=== PATIENT | female | born 1930 | race Caucasian/White ===

== ENCOUNTER 2016-08-15 22:27 | Observation (INO) | payer OTHER ==
[~2016-08-15] VITALS: Ht 152.4 cm; Wt 49.0 kg
[~2016-08-15 22:27] MED LIST: ACET1TAB84 PO
[2016-08-15] MEDS ORDERED: ONDANSETRON INJ 2 MG/ML 2 ML VIAL IV STA (22:43)
[2016-08-15] MEDS ORDERED: SODIUM CHLORIDE 0.9% 1000ML 1,000 ML IV STA (22:43)
[2016-08-15] MEDS ORDERED: SODIUM CHLORIDE 0.9% 500ML 500 ML IV STA (22:43)
[2016-08-15] MEDS ORDERED: ACET-1256 PO (22:52)
[2016-08-15 22:53] LABS: BASO % 0.3 %; BASO ABS # 0.02 K/uL (0-0.2); COMPLETE YES; EOS % 2.3 %; HEMATOCRIT 41.1 % (37-47); IG% 0.8 %; LYMPH % 42.9 %; LYMPH ABS # 3.29 K/uL (1.2-3.4); MEAN CELL VOLUME 90.9 fL (80-100); MEAN CORPUSCULAR HEMOGLOBIN 29.9 pg (25-34); MEAN CORPUSCULAR HGB CONC 32.8 g/dl (32-36); MEAN PLATELET VOLUME 9.2 fL (7.4-10.4); MONO % 6.5 %; NEUT % 47.2 %; PLATELET COUNT 249 K/uL (130-400); RED BLOOD COUNT 4.52 M/uL (4.2-5.4); WHITE BLOOD COUNT 7.67 K/uL (4.8-10.8)
--- NOTE | 2016-08-15 22:56 | DIAGNOSTIC IMAGING REPORT ---
CHEST ONE VIEW PORTABLE CLINICAL HISTORY: Chest pain. Fall. COMPARISON STUDY: Chest radiograph December 10, 2015. FINDINGS: There is no pneumothorax or pleural effusion. Subpleural interstitial thickening remains unchanged. Cardiomegaly is unchanged. There is no lobar consolidation. Severe degenerative changes of both shoulders with elevation of each humeral head is unchanged. This suggests chronic rotator cuff tears. IMPRESSION: 1. No acute findings. 2. No change in appearance of the chest with interstitial thickening suggestive of interstitial lung disease. Electronically signed by: Jonny Mckenna M.D. 08/15/2016 10:55 PM Dictated Date/Time: 08/15/2016 10:52 PM
[2016-08-15] MEDS ORDERED: OPTIRAY 320 IV PRN (23:00)
[2016-08-15 23:42] LABS: ALKALINE PHOSPHATASE 82 U/L (45-117); ALT/SGPT 17 U/L (12-78); BLOOD UREA NITROGEN 20 mg/dl (7-18); BUN/CREATININE RATIO 23.1 (10-20); CALCIUM 8.8 mg/dl (8.5-10.1); CARBON DIOXIDE 27 mmol/L (21-32); CHLORIDE 102 mmol/L (98-107); CREATININE 0.87 mg/dl (0.60-1.20); GLUCOSE 136 mg/dl (70-99); SODIUM 139 mmol/L (136-145)
[2016-08-15] MEDS ORDERED: XYLOCAINE 1%/SOD BICARB 20 ML VIAL INFIL ONE (23:45)
--- NOTE | 2016-08-15 23:55 | EMERGENCY ROOM VISIT NOTE ---
ED Visit Note First contact with patient: 22:21 Patient with fall. Patient sustained a laceration to her head, case was evaluated with physician assistant golf course superintendent Mary Dahl. I agree with her workup. I have evaluated the patient independently at 2350 Problem List Medical Problems: (1) Arthritis Status: Chronic (2) Arthroplasty of knee Status: Chronic (3) Benign essential hypertension Status: Chronic (4) Hemorrhoids Status: Chronic Current/Historical Medications Scheduled PRN Acetaminophen (Tylenol), 1,000 MG PO Q4 PRN for Pain Allergies Coded Allergies: No Known Allergies (Unverified , 08/15/16) Vital Signs Date Time Temp Pulse Resp B/P Pulse Ox O2 Delivery O2 Flow Rate FiO2 08/15/16 23:20 64 16 173/71 98 Room Air 08/15/16 22:41 36.1 60 16 173/76 98 Room Air 08/15/16 22:41 96 Room Air 08/15/16 22:38 61 Laboratory Results 08/15/16 22:00 Red Blood Count 4.52, Mean Corpuscular Volume 90.9, Mean Corpuscular Hemoglobin 29.9, Mean Corpuscular Hemoglobin Concent 32.8, Mean Platelet Volume 9.2, Neutrophils (%) (Auto) 47.2, Lymphocytes (%) (Auto) 42.9, Monocytes (%) (Auto) 6.5, Eosinophils (%) (Auto) 2.3, Basophils (%) (Auto) 0.3, Neutrophils # (Auto) 3.62, Lymphocytes # (Auto) 3.29, Monocytes # (Auto) 0.50, Eosinophils # (Auto) 0.18, Basophils # (Auto) 0.02 08/15/16 22:00 Test 08/15/16 22:00 08/15/16 22:32 08/15/16 23:42 White Blood Count 7.67 K/uL (4.8-10.8) Red Blood Count 4.52 M/uL (4.2-5.4) Hemoglobin 13.5 g/dL (12.0-16.0) Hematocrit 41.1 % (37-47) Mean Corpuscular Volume 90.9 fL (80-100) Mean Corpuscular Hemoglobin 29.9 pg (25-34) Mean Corpuscular Hemoglobin Concent 32.8 g/dl (32-36) Platelet Count 249 K/uL (130-400) Mean Platelet Volume 9.2 fL (7.4-10.4) Neutrophils (%) (Auto) 47.2 % Lymphocytes (%) (Auto) 42.9 % Monocytes (%) (Auto) 6.5 % Eosinophils (%) (Auto) 2.3 % Basophils (%) (Auto) 0.3 % Neutrophils # (Auto) 3.62 K/uL (1.4-6.5) Lymphocytes # (Auto) 3.29 K/uL (1.2-3.4) Monocytes # (Auto) 0.50 K/uL (0.11-0.59) Eosinophils # (Auto) 0.18 K/uL (0-0.5) Basophils # (Auto) 0.02 K/uL (0-0.2) RDW Standard Deviation 45.8 fL (36.4-46.3) RDW Coefficient of Variation 13.9 % (11.5-14.5) Immature Granulocyte % (Auto) 0.8 % Immature Granulocyte # (Auto) 0.06 K/uL (0.00-0.02) Anion Gap 10.0 mmol/L (3-11) Estimated GFR () 68.9 Estimated GFR (Non- 59.5 BUN/Creatinine Ratio 23.1 (10-20) Calcium Level 8.8 mg/dl (8.5-10.1) Total Bilirubin 0.3 mg/dl (0.2-1) Alanine Aminotransferase (ALT/SGPT) 17 U/L (12-78) Alkaline Phosphatase 82 U/L (45-117) Troponin I < 0.015 ng/ml (0-0.045) Total Protein 7.3 gm/dl (6.4-8.2) Albumin 3.5 gm/dl (3.4-5.0) Medications Administered Medications (Trade) Dose Ordered Sig/Vlad Route Start Time Stop Time Status Last Admin Dose Admin Ondansetron HCl 4 mg 4 mg NOW STAT IV 08/15/16 22:43 08/15/16 22:45 DC 08/15/16 22:50 4 MG Sodium Chloride 500 ml @ 999 mls/hr Q31M STAT IV 08/15/16 22:43 08/15/16 23:13 DC 08/15/16 22:50 999 MLS/HR Sodium Chloride (Nss 1000ml) 1,000 ml @ 75 mls/hr [id number] STAT IV 08/15/16 22:43 08/16/16 12:02 08/15/16 23:20 75 MLS/HR Lidocaine HCl (Buffered Lidocaine 1% Inj) 20 ml ONE ONCE INFIL 08/15/16 23:45 08/15/16 23:46 DC 08/15/16 23:50 20 ML Departure Information Referrals Lainey Vasquez M.D. (PCP) Patient Instructions [facility]
[2016-08-16 00:23] LABS: POTASSIUM 4.1 mmol/L (3.5-5.1)
[2016-08-16] MEDS ORDERED: LORAZEPAM 2 MG/ML 1 ML VIAL IV STA (00:26)
[2016-08-16 00:28] LABS: AST/SGOT 15 U/L (15-37)
[2016-08-16 00:37] LABS: URINE APPEARANCE CLEAR (CLEAR); URINE BILIRUBIN NEG (NEG); URINE COLOR YELLOW; URINE EPITHELIAL CELL AUTO >30 /lpf (0-5); URINE NITRITE NEG (NEG); URINE SPECIFIC GRAVITY 1.017 (1.000-1.030); UROBILINOGEN NEG (NEG); ZZUR CULT IF INDIC CLEAN CATCH YES
[2016-08-16 00:38] LABS: MANUAL MICROSCOPIC REQUIRED? NO; REVIEW REQ? YES
[2016-08-16] MEDS ORDERED: DIPHTHERIA/TETANUS/PERTUSSIS 0.5 ML SYR/VIAL IM. ONE (01:00)
--- NOTE | 2016-08-16 01:43 | EMERGENCY ROOM VISIT NOTE ---
History First contact with patient: 22:24 Chief Complaint: FALL Stated Complaint: FALL, HEAD LAC History of Present Illness The patient is a 86 year old female who presents to the Emergency Room with complaints of fall with head injury and vomiting. Patient does not recall the events that happened tonight. Patient complains of vomiting, lower abdominal pain, headache and head injury. She is unsure if the tetanus is current. Patient denies chest pain, dyspnea, fever, chills, cough, congestion. She is tolerating by mouth fluids and food. Patient was brought in by EMS. Review of Systems See HPI for pertinent positives & negatives. A total of 10 systems reviewed and were otherwise negative. Past Medical/Surgical History Medical Problems: (1) Arthritis (2) Arthroplasty of knee (3) Benign essential hypertension (4) Hemorrhoids Family History No pertinent family history Social History Smoking Status: Unknown if Ever Smoked Alcohol Use: none Drug Use: none Marital Status: Housing Status: half-way Occupation Status: retired Current/Historical Medications Scheduled PRN Acetaminophen (Tylenol), 1,000 MG PO Q4 PRN for Pain Allergies Coded Allergies: No Known Allergies (Unverified , 08/15/16) Physical Exam Vital Signs Date Time Temp Pulse Resp B/P Pulse Ox O2 Delivery O2 Flow Rate FiO2 08/15/16 23:20 64 16 173/71 98 Room Air 08/15/16 22:41 36.1 60 16 173/76 98 Room Air 08/15/16 22:41 96 Room Air 08/15/16 22:38 61 Physical Exam VITALS: Vitals are noted on the nurse's note and reviewed by myself. Vital signs stable. GENERAL: Pleasant female, in no acute distress, nondiaphoretic, well-developed well-nourished. SKIN: 3 cm right parietal scalp laceration and superficial abrasion to the left parietal region that appears clean The rest of the skin was without rashes, erythema, edema, or bruising. There is no tenting of the skin. Capillary reflex less than 2 seconds. HEAD: Normocephalic Face: Nontender to palpation. EARS: External auditory canals clear, tympanic membranes pearly robles without erythema or effusion bilaterally. EYES: Pupils equal round and reactive to light and accommodation. Conjunctivae without injection, sclerae without icterus. Extraocular movements intact. NOSE: Patent, turbinates without inflammation or discharge. No sinus tenderness. MOUTH: Mucous membranes moist. Tonsils are not enlarged. Pharynx without erythema or exudate. Uvula midline. Airway patent. Tongue does not deviate. NECK: Supple without nuchal rigidity. No lymphadenopathy. No thyromegaly. Cervical spine is nontender. No JVD. HEART: Regular rate and rhythm LUNGS: Clear to auscultation bilaterally without wheezes, rales or rhonchi. No dullness to percussion. No retractions or accessory muscle use. ABDOMEN: Positive bowel sounds x 4. Normal tympanic percussion. Soft, tender to palpation lower abdomen, no CVA tenderness, without masses or organomegaly. Schmitt sign negative. No guarding or rebound tenderness. MUSCULOSKELETAL: No muscle atrophy, erythema, or edema noted. No thoracic or lumbar tenderness on exam. Stable. 5 out of 5 strength throughout. NEURO: Patient was alert and oriented to person place and time. Normal sensation to light and sharp touch. No focal neurological deficits. Medical Decision & Procedures Laboratory Results 08/15/16 22:00 Red Blood Count 4.52, Mean Corpuscular Volume 90.9, Mean Corpuscular Hemoglobin 29.9, Mean Corpuscular Hemoglobin Concent 32.8, Mean Platelet Volume 9.2, Neutrophils (%) (Auto) 47.2, Lymphocytes (%) (Auto) 42.9, Monocytes (%) (Auto) 6.5, Eosinophils (%) (Auto) 2.3, Basophils (%) (Auto) 0.3, Neutrophils # (Auto) 3.62, Lymphocytes # (Auto) 3.29, Monocytes # (Auto) 0.50, Eosinophils # (Auto) 0.18, Basophils # (Auto) 0.02 08/15/16 22:00 08/15/16 23:52 Test 08/15/16 22:00 08/15/16 23:52 08/16/16 00:27 White Blood Count 7.67 K/uL (4.8-10.8) Red Blood Count 4.52 M/uL (4.2-5.4) Hemoglobin 13.5 g/dL (12.0-16.0) Hematocrit 41.1 % (37-47) Mean Corpuscular Volume 90.9 fL (80-100) Mean Corpuscular Hemoglobin 29.9 pg (25-34) Mean Corpuscular Hemoglobin Concent 32.8 g/dl (32-36) Platelet Count 249 K/uL (130-400) Mean Platelet Volume 9.2 fL (7.4-10.4) Neutrophils (%) (Auto) 47.2 % Lymphocytes (%) (Auto) 42.9 % Monocytes (%) (Auto) 6.5 % Eosinophils (%) (Auto) 2.3 % Basophils (%) (Auto) 0.3 % Neutrophils # (Auto) 3.62 K/uL (1.4-6.5) Lymphocytes # (Auto) 3.29 K/uL (1.2-3.4) Monocytes # (Auto) 0.50 K/uL (0.11-0.59) Eosinophils # (Auto) 0.18 K/uL (0-0.5) Basophils # (Auto) 0.02 K/uL (0-0.2) RDW Standard Deviation 45.8 fL (36.4-46.3) RDW Coefficient of Variation 13.9 % (11.5-14.5) Immature Granulocyte % (Auto) 0.8 % Immature Granulocyte # (Auto) 0.06 K/uL (0.00-0.02) Anion Gap 10.0 mmol/L (3-11) Estimated GFR () 68.9 Estimated GFR (Non- 59.5 BUN/Creatinine Ratio 23.1 (10-20) Calcium Level 8.8 mg/dl (8.5-10.1) Total Bilirubin 0.3 mg/dl (0.2-1) Alanine Aminotransferase (ALT/SGPT) 17 U/L (12-78) Alkaline Phosphatase 82 U/L (45-117) Troponin I < 0.015 ng/ml (0-0.045) Total Protein 7.3 gm/dl (6.4-8.2) Albumin 3.5 gm/dl (3.4-5.0) Direct Bilirubin < 0.1 mg/dl (0-0.2) Aspartate Amino Transf (AST/SGOT) 15 U/L (15-37) Urine Color YELLOW Urine Appearance CLEAR (CLEAR) Urine pH 7.0 (4.5-7.5) Urine Specific [place] 1.017 (1.000-1.030) Urine Protein NEG (NEG) Urine Glucose (UA) NEG (NEG) Urine Ketones NEG (NEG) Urine Occult Blood 3+ (NEG) Urine Nitrite NEG (NEG) Urine Bilirubin NEG (NEG) Urine Urobilinogen NEG (NEG) Urine Leukocyte Esterase LARGE (NEG) Urine WBC (Auto) 10-30 /hpf (0-5) Urine RBC (Auto) >30 /hpf (0-4) Urine Hyaline Casts (Auto) 1-5 /lpf (0-5) Urine Epithelial Cells (Auto) >30 /lpf (0-5) Urine Bacteria (Auto) NEG (NEG) Urine Renal Epithelial Cells 0-5 /lpf (0-5) Medications Administered Medications (Trade) Dose Ordered Sig/Vlad Route Start Time Stop Time Status Last Admin Dose Admin Ondansetron HCl 4 mg 4 mg NOW STAT IV 08/15/16 22:43 08/15/16 22:45 DC 08/15/16 22:50 4 MG Sodium Chloride 500 ml @ 999 mls/hr Q31M STAT IV 08/15/16 22:43 08/15/16 23:13 DC 08/15/16 22:50 999 MLS/HR Sodium Chloride (Nss 1000ml) 1,000 ml @ 75 mls/hr [id number] STAT IV 08/15/16 22:43 08/16/16 12:02 08/15/16 23:20 75 MLS/HR Lidocaine HCl (Buffered Lidocaine 1% Inj) 20 ml ONE ONCE INFIL 08/15/16 23:45 08/15/16 23:46 DC 08/15/16 23:50 20 ML Lorazepam (Ativan Inj) 0.5 mg NOW STAT IV 08/16/16 00:26 08/16/16 00:27 DC 08/16/16 00:31 0.5 MG Procedure Location: Scalp Total length: 3cm Complexity: Simple Verbal consent was obtained after the risks and benefits were explained, including but not limited to bleeding, scarring, infection, pain, and bone/ nerve damage. At this time, the risks of the procedure are less than the risks of NOT performing the procedure. A time out was taken and the correct patient and site identified. The scalp was prepped with betadine. pt declined lidocaine. Copious irrigation was performed using saline. The skin was re- prepped with betadine, the hair cleared from the wound, and a sterile field set. The wound was explored for foreign bodies and none found. Debridement was not performed. The wound edges were approximated using 3 surgical edilberto in the standard fashion. Hemostasis and excellent approximation was achieved. Antibacterial ointment and a sterile dressing applied. Detailed wound care instructions and signs and symptoms of infection reviewed with the pt. No complications and the patient tolerated the procedure well. ED Course Prior records/ancillary studies reviewed and summarized above. Nursing notes reviewed. Additional history obtained from family. The patient's history was concerning for N/V, abd pain, fall, head injury. Differential diagnosis: Etiologies such as metabolic, infection, hypo/hyperglycemia, electrolyte abnormalities, cardiac sources, intracerebral event, toxicologic, neurologic, as well as others were entertained. Physical examination: As above. ER treatment provided: IV Lock Zofran On reassessment the patient felt better. Diagnostics interpretation by me: ECG: Normal sinus, normal intervals, no acute ST-T wave changes. Impression normal sinus rhythm interpreted by myself The labs revealed no worrisome leukocytosis or electrolyte abnormality Imaging studies: CT ABDOMEN & PELVIS: Colonic diverticula without CT evidence of acute diverticulitis. Moderate stool in the distal colon and rectum. Correlate for fecal retention/ constipation. Mild right renal pelviectasis versus extrarenal pelvis. No evidence of ureteral calculus. Chronic-appearing posttraumatic and degenerative changes of the right hip with small amount of air extending into the soft tissues superior to the acetabulum (Series 2, Image 55) . Air may be related to degenerative phenomenon or infection. Recommend clinical correlation and comparison with prior imaging if available. Normal appendix. Peripheral interstitial changes at the lung bases suggestive of chronic lung disease. Radiologist: Nicole Geronimo MD CT HEAD: No acute intracranial hemorrhage, skull fracture, mass effect or midline shift. Mild right posterolateral scalp soft tissue swelling and focus of soft tissue are suggestive of laceration. Subtle hyperdense peripheral mass in the right temporal lobe, measuring approximately 1.8 x 2.3 cm (Series 4, Image 11). Recommend MRI with and without contrast to further assess. Air-fluid level in the left maxillary sinus, possibly due to sinusitis although facial trauma is not excluded. If there is concern for facial bone fracture, dedicated CT of the facial bones is recommended. Mild senescent changes of the brain. Radiologist: Nicole Geronimo MD CT C SPINE: No acute fracture or traumatic subluxation of the cervical spine. Multilevel degenerative changes of the cervical spine. Radiologist: Nicole Geronimo MD CHEST ONE VIEW PORTABLE CLINICAL HISTORY: Chest pain. Fall. COMPARISON STUDY: Chest radiograph December 10, 2015. FINDINGS: There is no pneumothorax or pleural effusion. Subpleural interstitial thickening remains unchanged. Cardiomegaly is unchanged. There is no lobar consolidation. Severe degenerative changes of both shoulders with elevation of each humeral head is unchanged. This suggests chronic rotator cuff tears. IMPRESSION: 1. No acute findings. 2. No change in appearance of the chest with interstitial thickening suggestive of interstitial lung disease. Consultation: A consultation was placed with the hospitalist, Dr Juárez. The case was discussed and diagnostics were reviewed. The patient was evaluated in the ER for further treatment. Exam and history seem consistent with the brain mass with intractable vomiting head injury, fall and scalp laceration. Patient has no right hip tenderness on exam. She can move the leg without difficulties. This could be chronic in nature from the CT reading. Patient will be evaluated by medicine for possible admission. She is given a few rounds of Zofran. No other acute injuries were noted.By the evaluation outlined above emergent etiologies such as electrolyte abnormalities, cardiac sources, intracerebral event, toxologic, abnormalities blood glucose, metabolic, as well as others were deemed relatively unlikely. The pt informed about the findings as listed above. All questions were answered and pleased with the treatment. Case reviewed with my attending Medical Decision As above Impression Primary Impression: Brain mass Additional Impressions: Fall Scalp laceration Vomiting Head injury Departure Information Dispostion Being Evaluated By Hospitalist Condition FAIR Referrals Lainey Vasquez M.D. (PCP) Patient Instructions [facility] Problem Qualifiers
[2016-08-16 01:44] LABS: MAGNESIUM 1.9 mg/dl (1.8-2.4)
[2016-08-16] MEDS ORDERED: DIPHTHERIA/TETANUS TOX ADSORBED ULTRAFINED 0.5 ML SYR/VIAL IM. ONE (02:00)
[2016-08-16 02:25] VITALS: BP 175/93; PULSE 80; TEMP 36.3; O2SAT 97; Ht 152.4 cm; Wt 49.0 kg
[2016-08-16] MEDS ORDERED: NITROGLYCERIN 0.4 MG SL PER TAB CHARGE SL PRN (02:30)
[2016-08-16] MEDS ORDERED: DOCUSATE SODIUM/SENNA 50/8.6MG TAB PO ONE (02:30)
[2016-08-16] MEDS ORDERED: HALOPERIDOL 1 MG TAB PO PRN (02:30)
[2016-08-16] MEDS ORDERED: HALOPERIDOL LACTATE 5 MG/ML 1 ML VIAL IM PRN (02:30)
[2016-08-16] MEDS ORDERED: PROMETHAZINE HCL INJ 12.5 MG in SODIUM CHLORIDE 0.9% 50ML 50 ML IV PRN (02:30)
[2016-08-16] MEDS ORDERED: ONDANSETRON INJ 2 MG/ML 2 ML VIAL IV PRN (02:30)
[2016-08-16] MEDS ORDERED: POLYETHYLENE (MIRALAX) 17 GM PACK PO ONE (02:30)
[2016-08-16] MEDS ORDERED: POLYETHYLENE (MIRALAX) 17 GM PACK PO PRN (02:30)
[2016-08-16] MEDS ORDERED: HYDROmorphone INJ 0.5 MG/0.5 ML SYR IV PRN (02:30)
[2016-08-16] MEDS ORDERED: SODIUM CHLORIDE 0.9% 1000ML 1,000 ML IV ONE (02:30)
[2016-08-16 02:36] VITALS: BP 175/93; PULSE 80; TEMP 36.3; O2SAT 97
[2016-08-16] MEDS ORDERED: IV FLUIDS COMPLETED PRN (03:15)
[2016-08-16] MEDS ORDERED: INFLUENZA VIRUS QUAD VACCINE 0.5 ML SYR IM. ONE (03:45)
[2016-08-16] MEDS ORDERED: INFLUENZA ADMINISTRATION CHARGE ONE (03:45)
[2016-08-16] MEDS ORDERED: LISINOPRIL 2.5 MG TAB PO ONE (04:15)
--- NOTE | 2016-08-16 06:34 | DIAGNOSTIC IMAGING REPORT ---
CT OF THE HEAD WITHOUT CONTRAST CLINICAL HISTORY: Fall with head injury. COMPARISON STUDY: No previous studies for comparison. CT DOSE: 1184.12 mGy.cm TECHNIQUE: Helical axial images of the head were obtained without IV contrast. Automated exposure control was utilized for the study. FINDINGS: Note is made of a 2.5 x 1.9 cm subtle hyperdense mass within the right temporal lobe shown on image 11 of 28. Ventricular system is normal. The basilar cisterns are patent. There are no extra-axial fluid collections. Mild white matter hypodensity suggests small vessel disease. No definite acute intracranial hemorrhage is present. There is an air-fluid level within left maxillary sinus. No fracture is identified within the visualized adjacent facial bones which are incompletely imaged on this exam. There is a right posterior scalp laceration and contusion. There is no calvarial fracture. IMPRESSION: 1. No acute intracranial hemorrhage. 2. 2.5 x 1.8 cm subtle hyperdense right temporal lobe mass. This may be intra or extra-axial and could reflect a meningioma however a follow-up nonemergent MRI of the brain with and without contrast is recommended. 3. Right posterior scalp contusion and laceration. No calvarial fracture. 4. Air-fluid level within left maxillary sinus which likely reflects acute sinusitis. Electronically signed by: Jonny Mckenna M.D. 08/16/2016 6:33 AM Dictated Date/Time: 08/16/2016 6:27 AM
--- NOTE | 2016-08-16 06:39 | DIAGNOSTIC IMAGING REPORT ---
CERVICAL SPINE CT CT DOSE: HISTORY: Trauma fall, head injury TECHNIQUE: Multiaxial CT images of the cervical spine were performed and reformatted in the sagittal and coronal plane without the use of contrast. COMPARISON: None. FINDINGS: No fractures. No subluxation. Prevertebral soft tissues and the C1-C2 interval are intact. No pneumothorax. Degenerative change throughout IMPRESSION: No fractures within the cervical spine. Degenerative change throughout. Electronically signed by: Aurelio Dove M.D. 08/16/2016 6:38 AM Dictated Date/Time: 08/16/2016 6:37 AM
--- NOTE | 2016-08-16 07:25 | DIAGNOSTIC IMAGING REPORT ---
ABDOMEN AND PELVIS CT WITH IV CONTRAST CT DOSE: 306.32 mGy.cm HISTORY: Pain. Nausea. lower abd pain TECHNIQUE: Multiaxial CT images of the abdomen and pelvis were performed following the use of intravenous contrast. COMPARISON STUDY: None. FINDINGS: Nonspecific interstitial change at both lung bases. Liver spleen and pancreas are unremarkable. Several small parapelvic cysts versus prominent extrarenal pelves. No evidence for hydronephrosis. 6 mm cyst anterior aspect interpolar region left kidney. Bowel pattern is nonobstructive. Moderate increase in fecal load within the sigmoid. Compression deformity T10 considered old by CT criteria. Severe degenerative change right hip with evidence for appears to be long-standing avascular necrosis versus old posttraumatic change. Severe deformity right acetabulum. Small air/fluid pocket superior to the acetabulum which may be present on a degenerative and/or post injection basis. Infection is considered a secondary but nevertheless possible etiology. IMPRESSION: 1. Severe degenerative change right hip with a small air-containing fluid pocket superior to the acetabulum of uncertain etiology. 2. Nonobstructive bowel pattern. 3. 50% compression deformity T10 considered old 4. Increased fecal load within the sigmoid. 5. Bibasilar fibrotic change Electronically signed by: Aurelio Dove M.D. 08/16/2016 7:23 AM Dictated Date/Time: 08/16/2016 7:13 AM
--- NOTE | 2016-08-16 07:26 | HISTORY & PHYSICAL EXAMINATION ---
DATE OF ADMISSION: 08/16/2016 PRIMARY CARE DOCTOR: Dr. Vasquez. History obtained from patient, records, patient's family. Patient not a reliable historian 2 to dementia and hearing impairment. CHIEF COMPLAINT: "Here for surgery" as per patient fall as per family. HISTORY OF PRESENT ILLNESS: Medical history significant for hypertension, irritable bowel syndrome, constipation predominant as per records, dementia. Recent confinement in the hospital last 2010 for left knee surgery. As per patient's daughter, px turned around yesterday leading to dizziness and a fall. PX subsequently hit her head. Emesis sx as per EMS account. No witnessed LOC. Patient does not recall falling or hitting her head. Px denies chest pain, shortness of breath. Brought by EMS to the hospital, scalp wound sutured. MEDICAL HISTORY: As above. SURGERIES: Hysterectomy, knee surgery, cataract surgery. HOME MEDICATIONS: Imodium, Tylenol. ALLERGIES: No known drug allergies. FAMILY HISTORY: Could not be obtained. PERSONAL AND SOCIAL HISTORY: Nonsmoker. No chronic intake of alcoholic beverages. 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 Family worried over px declining functionality over the last few months. Patient refusing senior care placement as per records. REVIEW OF SYSTEMS: Could not be obtained. PHYSICAL EXAMINATION: VITAL SIGNS: Blood pressure was noted to be 170/76, pulse rate 60, RR 16, T 37 O2 98 room air. GENERAL: Noted to be demented, no respiratory distress. SKIN: Normal color. HEENT: [place] on scalp lacerated wound, R parietal, pink palp conjunctivae, dry mucosa. NECK: No JVD. Supple. CHEST: Decreased effort. HEART: Regular rate and rhythm. ABDOMEN: Some distention, nontender. EXTREMITIES: No edema, no tenderness. NEUROLOGIC: Dementia. LABS: Hemoglobin was noted to be 13.5, white cells 10, platelets 200. Sodium 137, potassium 4.1, BUN 20, creatinine 1, glucose was noted to be 136. trop 0 CT of the head initial read showed no acute intracranial hemorrhage, mild right posterolateral scalp soft tissue swelling, laceration, subtle hyperdense peripheral mass right temp lobe. Recommend MRI CT of the abdomen and pelvis. Moderate stool, chronic appearing changes R hip ASSESSMENT: 1. Mild cerebral concussion secondary to traumatic fall vomiting sx post head trauma no LOC as per daughter account 2. dementia, worsening disability as per family 3. Hypertensive urgency medication noncompliance px requested to be off her home BB since [address] of the head RE temporal mass. 5. constipation on CT PLAN: Observation PCU, neuro checks Neurology consult RE cerebral concussion, MRI of the brain, abnormal CT of the head. Initiate low dose DANI inhibitor bowel regimen PT OT eval Social service RE discharge planning. DVT prophylaxis, SCDs. RE recent head trauma/wound DNR as per son/POA, . Lexa Ayala. He requests updates from providers at [phone]. [facility]
[2016-08-16 07:52] VITALS: BP 117/68; PULSE 62; TEMP 36.7; O2SAT 97
[2016-08-16 10:36] LABS: BUN/CREATININE RATIO 16.1 (10-20); CALCIUM 8.7 mg/dl (8.5-10.1); CREATININE 0.95 mg/dl (0.60-1.20); POTASSIUM 4.2 mmol/L (3.5-5.1)
[2016-08-16] MEDS: ACETAMINOPHEN 325 MG TAB PO PRN (13:11)
--- NOTE | 2016-08-16 13:28 | Neurology Consultation ---
Neurology Consultation Date of Consultation: Aug 16, 2016. Attending Physician: Esvin Gurrola MD Primary Care Physician: Lainey Vasquez M.D. Reason for Consultation: concussion History of Present Illness Source: patient, family Alissa is an 86 year old female who was brought to the ED after a fall at home. She has a PMH HTN and arthritis. 2 of her sons, a daughter and a daughter in law are all bedside. They states this has been a slow progression of memory issues and falls. She had to sell her house and move into an apartment and live with her daughter. She is unable now to pay her bills or keep up on the daily tasks around the house. Her daughter is epileptic and because of the stress she has started to have "mini seizures". Her family has wanted her to be evaluated because she is not eating or drinking well and is becoming more difficulty to handle but she has refused treatment. Patient states she falls all the time and she just wants to go home. She states she remembers falling and was not lightheaded or dizzy but she does say sometime she does have dizzy spells. denies CP, SOB, abdmominal pain, weakness, N, V,D, fever chills night sweats bowel or bladder issues Past Medical/Surgical History Medical Problems: (1) Brain mass Status: Acute (2) Diarrhea Status: Acute (3) Fall Status: Acute (4) GI bleeding Status: Acute (5) Head injury Status: Acute (6) Rectal bleeding Status: Acute (7) Scalp laceration Status: Acute (8) Vomiting Status: Acute Social History Drug Use: none Marital Status: Housing Status: group home Occupation Status: retired Allergies Coded Allergies: No Known Allergies (Unverified , 08/15/16) Current Inpatient Medications Current Inpatient Medications Medications (Trade) Dose Ordered Sig/Vlad Route Start Time Stop Time Status Last Admin Dose Admin Ioversol 125 ml 125 ml UD PRN IV 08/15/16 23:00 08/19/16 22:59 Sodium Chloride (Nss 1000ml) 1,000 ml @ 60 mls/hr [id number] ONCE IV 08/16/16 02:30 08/16/16 19:09 08/16/16 03:53 60 MLS/HR Acetaminophen (Tylenol Tab) 650 mg Q4H PRN PO 08/16/16 02:30 09/15/16 02:29 Nitroglycerin (Nitrostat Tab) 0.4 mg UD PRN SL 08/16/16 02:30 09/15/16 02:29 Hydromorphone HCl (Dilaudid Inj) 0.5 mg Q3H PRN IV 08/16/16 02:30 08/30/16 02:29 Haloperidol (Haldol Tab) 2 mg Q4H PRN PO 08/16/16 02:30 09/15/16 02:29 Haloperidol Lactate (Haldol Inj) 2 mg Q2H PRN IM 08/16/16 02:30 09/15/16 02:29 Ondansetron HCl 4 mg 4 mg Q6H PRN IV 08/16/16 02:30 09/15/16 02:29 Promethazine HCl/ Sodium Chloride (Phenergan Inj/ Nss 50ml) 50.5 ml @ 204 mls/hr Q6H PRN IV 08/16/16 02:30 09/15/16 02:29 Senna/Docusate Sodium (Senokot S Tab) 1 tab DAILY PO 08/17/16 08:00 09/16/16 08:59 Polyethylene (Miralax Powder Packet) 17 gm DAILY PRN PO 08/16/16 02:30 09/15/16 02:29 Miscellaneous (Iv Fluids Completed) 1 ea PRN PRN N/A 08/16/16 03:15 08/16/17 03:14 Lisinopril (Zestril Tab) 2.5 mg QAM PO 08/17/16 08:00 09/16/16 08:59 Physical Exam Vital Signs (Past 24 Hrs): Date Time Temp Pulse Resp B/P Pulse Ox O2 Delivery O2 Flow Rate FiO2 08/16/16 08:09 Room Air 08/16/16 07:52 36.7 62 16 117/68 97 08/16/16 02:36 36.3 80 18 175/93 97 Room Air 08/16/16 02:25 36.3 80 18 175/93 97 Room Air 08/16/16 01:34 84 16 163/94 98 Room Air 08/15/16 23:20 64 16 173/71 98 Room Air 08/15/16 22:41 36.1 60 16 173/76 98 Room Air 08/15/16 22:41 96 Room Air 08/15/16 22:38 61 Physical Exam: Constitutional: appearance thin pale unkept Ears, Nose, Mouth and Throat: mucous membranes moist, no injection and skin normal, eyes normal Cardiovascular: normal S-1 and S-2 and regular rate and rhythm Respiratory: clear to auscultation (CTA) and no rales, rhonchi or wheeze Musculoskeletal: no peripheral edema and good distal pulses, 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 Oriented to person Speech fluent with no evidence of aphasia Cranial Nerves smile eye brow raise symmetric, tongue midline Reflexes: Deep tendon reflexes were symmetrical and graded 2/5. Plantar responses were flexor. no clonus Sensory: decreased sensation bilaterally to cool touch to perera, vibration decreased in RLE toes, GT proprioception in tact Coordination: Romberg drift to right but corrects self, finger to nose without bi pass or tremor Gait/Stance: Posture sitting but stands and moves around room a lot looking for her shoes, orthopedic limp with gait Motor: Negative for pronator drift of out stretched arms with eyes closed. Strength: biceps triceps deltoids hand rebar fabricator bilaterally 5/5, hip flex 5/5 Laboratory Results Past 24 Hours: 08/15/16 22:00 Red Blood Count 4.52, Mean Corpuscular Volume 90.9, Mean Corpuscular Hemoglobin 29.9, Mean Corpuscular Hemoglobin Concent 32.8, Mean Platelet Volume 9.2, Neutrophils (%) (Auto) 47.2, Lymphocytes (%) (Auto) 42.9, Monocytes (%) (Auto) 6.5, Eosinophils (%) (Auto) 2.3, Basophils (%) (Auto) 0.3, Neutrophils # (Auto) 3.62, Lymphocytes # (Auto) 3.29, Monocytes # (Auto) 0.50, Eosinophils # (Auto) 0.18, Basophils # (Auto) 0.02 08/16/16 09:42 Test 08/15/16 22:00 08/15/16 23:52 08/16/16 00:27 08/16/16 09:42 White Blood Count 7.67 K/uL (4.8-10.8) Red Blood Count 4.52 M/uL (4.2-5.4) Hemoglobin 13.5 g/dL (12.0-16.0) Hematocrit 41.1 % (37-47) Mean Corpuscular Volume 90.9 fL (80-100) Mean Corpuscular Hemoglobin 29.9 pg (25-34) Mean Corpuscular Hemoglobin Concent 32.8 g/dl (32-36) Platelet Count 249 K/uL (130-400) Mean Platelet Volume 9.2 fL (7.4-10.4) Neutrophils (%) (Auto) 47.2 % Lymphocytes (%) (Auto) 42.9 % Monocytes (%) (Auto) 6.5 % Eosinophils (%) (Auto) 2.3 % Basophils (%) (Auto) 0.3 % Neutrophils # (Auto) 3.62 K/uL (1.4-6.5) Lymphocytes # (Auto) 3.29 K/uL (1.2-3.4) Monocytes # (Auto) 0.50 K/uL (0.11-0.59) Eosinophils # (Auto) 0.18 K/uL (0-0.5) Basophils # (Auto) 0.02 K/uL (0-0.2) RDW Standard Deviation 45.8 fL (36.4-46.3) RDW Coefficient of Variation 13.9 % (11.5-14.5) Immature Granulocyte % (Auto) 0.8 % Immature Granulocyte # (Auto) 0.06 K/uL (0.00-0.02) Total Bilirubin 0.3 mg/dl (0.2-1) Alanine Aminotransferase (ALT/SGPT) 17 U/L (12-78) Alkaline Phosphatase 82 U/L (45-117) Troponin I < 0.015 ng/ml (0-0.045) Total Protein 7.3 gm/dl (6.4-8.2) Albumin 3.5 gm/dl (3.4-5.0) Magnesium Level 1.9 mg/dl (1.8-2.4) Direct Bilirubin < 0.1 mg/dl (0-0.2) Aspartate Amino Transf (AST/SGOT) 15 U/L (15-37) Thyroid Stimulating Hormone (TSH) 2.780 uIu/ml (0.300-4.500) Urine Color YELLOW Urine Appearance CLEAR (CLEAR) Urine pH 7.0 (4.5-7.5) Urine Specific [place] 1.017 (1.000-1.030) Urine Protein NEG (NEG) Urine Glucose (UA) NEG (NEG) Urine Ketones NEG (NEG) Urine Occult Blood 3+ (NEG) Urine Nitrite NEG (NEG) Urine Bilirubin NEG (NEG) Urine Urobilinogen NEG (NEG) Urine Leukocyte Esterase LARGE (NEG) Urine WBC (Auto) 10-30 /hpf (0-5) Urine RBC (Auto) >30 /hpf (0-4) Urine Hyaline Casts (Auto) 1-5 /lpf (0-5) Urine Epithelial Cells (Auto) >30 /lpf (0-5) Urine Bacteria (Auto) NEG (NEG) Urine Renal Epithelial Cells 0-5 /lpf (0-5) Anion Gap 11.0 mmol/L (3-11) Est Creatinine Clear Calc Drug Dose 29.4 ml/min Estimated GFR () 62.0 Estimated GFR (Non- 53.5 BUN/Creatinine Ratio 16.1 (10-20) Calcium Level 8.7 mg/dl (8.5-10.1) Imaging CT head- No acute intracranial hemorrhage. 2.5 x 1.8 cm subtle hyperdense right temporal lobe mass. This may be intra or extra-axial and could reflect a meningioma however a follow-up nonemergent MRI of the brain with and without contrast is recommended. Right posterior scalp contusion and laceration. No calvarial fracture. Air-fluid level within left maxillary sinus which likely reflects acute sinusitis. Impression 86 year old female with a progressive decline in MS- CT head with lesion Plan 1. 1:1 due to fall risk 2. family is requesting placement for the progressive memory issues and unable to care for her at home 3. care management making arrangement 4. MRI currently pending will need done with contrast 5. labs B12, folate, RPR order, TSH pending 6. discussed dementia medications aricept due to weight loss and no appetite is not option, may consider Namenda 7. further recommendations to follow I have seen and discussed above patient with Dr Anaid Graves, neurology PT is known to me for many years as I have cared for her daughter and her now- . I have witnessed a gradual cognitive decline. Pt living in the [facility] with her daughter who has a sz disorder. Pt fell and was brought in. Evidence of UTI on ua. CT head shows a r temp mass MRI brain complete, and with contrast not tolerated suggest of poss R temp meningioma. No hx of sz that I aware. Pt is awake, alert, moderately confused, tells me she has problems with her ears and appears distressed. Oriented to hospital, does not recognize me. Names, follows 1 step commands, NCAT Perrl, unable to vis optic nerve. No gross facial asym, asymmetric weakness or drift, symm reflexes, toes downgoing Imp Suspect AD with superimposed mild delirium. The R temp mass is likely asx. If pt cannot tolerate MRI, could do CT head with and without to clarify whether tumor in extra- or intra-axial. Labs for treatable etiologies of dementia. Doubt pt a candidate for Aricept as she appears to have lost weight. Could start Namenda but unlikely to make any demonstrable change in pt. Pt will need NH placement. GILBERTO Graves MD
--- NOTE | 2016-08-16 14:45 | Progress Note ---
Medicine Progress Note Date & Time of Visit: Aug 16, 2016 at 14:40. Subjective patient seen sitting up in bed, comfortable oriented x 2, pleasant, cooperative was having frontal headache, resolved reports yellow nasal discharge, no cough/dyspnea denies hip pain, gait problems no chest pain, dyspnea, abdominal pain, nausea/vomiting, no other symptoms Objective Last 8 Hrs Date Time Temp Pulse Resp B/P Pulse Ox O2 Delivery O2 Flow Rate FiO2 08/16/16 08:09 Room Air 08/16/16 07:52 36.7 62 16 117/68 97 Physical Exam: General- oriented x 3, not in distress, speaks in sentences with no effort Head- atraumatic Eyes- EOMI, anicteric ENT- oropharynx clear mild left maxillary tenderness Neck- supple, no JVD, no adenopathy Lungs- clear to auscultation bilaterally Heart- normal rate, regular rhythm; no murmurs Abdomen- normal bowel sounds, soft, nontender Extremities- no pretibial edema, no calf tenderness; peripheral pulses intact Neuro- alert, oriented x 2;no gross focal deficits Skin- warm & dry Laboratory Results: Last 24 Hours Test 08/15/16 22:00 08/15/16 23:52 08/16/16 00:27 08/16/16 09:42 White Blood Count 7.67 K/uL Red Blood Count 4.52 M/uL Hemoglobin 13.5 g/dL Hematocrit 41.1 % Mean Corpuscular Volume 90.9 fL Mean Corpuscular Hemoglobin 29.9 pg Mean Corpuscular Hemoglobin Concent 32.8 g/dl Platelet Count 249 K/uL Mean Platelet Volume 9.2 fL Neutrophils (%) (Auto) 47.2 % Lymphocytes (%) (Auto) 42.9 % Monocytes (%) (Auto) 6.5 % Eosinophils (%) (Auto) 2.3 % Basophils (%) (Auto) 0.3 % Neutrophils # (Auto) 3.62 K/uL Lymphocytes # (Auto) 3.29 K/uL Monocytes # (Auto) 0.50 K/uL Eosinophils # (Auto) 0.18 K/uL Basophils # (Auto) 0.02 K/uL RDW Standard Deviation 45.8 fL RDW Coefficient of Variation 13.9 % Immature Granulocyte % (Auto) 0.8 % Immature Granulocyte # (Auto) 0.06 K/uL Sodium Level 139 mmol/L 139 mmol/L Potassium Level mmol/L 4.1 mmol/L 4.2 mmol/L Chloride Level 102 mmol/L 102 mmol/L Carbon Dioxide Level 27 mmol/L 26 mmol/L Anion Gap 10.0 mmol/L 11.0 mmol/L Blood Urea Nitrogen 20 mg/dl 15 mg/dl Creatinine 0.87 mg/dl 0.95 mg/dl Estimated GFR () 68.9 62.0 Estimated GFR (Non- 59.5 53.5 BUN/Creatinine Ratio 23.1 16.1 Random Glucose 136 mg/dl 136 mg/dl Calcium Level 8.8 mg/dl 8.7 mg/dl Total Bilirubin 0.3 mg/dl Direct Bilirubin mg/dl < 0.1 mg/dl Aspartate Amino Transf (AST/SGOT) U/L 15 U/L Alanine Aminotransferase (ALT/SGPT) 17 U/L Alkaline Phosphatase 82 U/L Troponin I < 0.015 ng/ml Total Protein 7.3 gm/dl Albumin 3.5 gm/dl Magnesium Level 1.9 mg/dl Thyroid Stimulating Hormone (TSH) 2.780 uIu/ml Urine Color YELLOW Urine Appearance CLEAR Urine pH 7.0 Urine Specific [place] 1.017 Urine Protein NEG Urine Glucose (UA) NEG Urine Ketones NEG Urine Occult Blood 3+ Urine Nitrite NEG Urine Bilirubin NEG Urine Urobilinogen NEG Urine Leukocyte Esterase LARGE Urine WBC (Auto) 10-30 /hpf Urine RBC (Auto) >30 /hpf Urine Hyaline Casts (Auto) 1-5 /lpf Urine Epithelial Cells (Auto) >30 /lpf Urine Bacteria (Auto) NEG Urine Renal Epithelial Cells 0-5 /lpf Est Creatinine Clear Calc Drug Dose 29.4 ml/min Test 08/16/16 13:25 Date/Time Source Procedure Growth Status 08/16/16 00:27 Urine , Clean Catch Urine Culture Pending Received Assessment & Plan 86 year old female with history of hypertension presenting with fall. S/P FALL - patient denies any prodrome - likely mechanical - PT/OT eval check orthostatic VS POSSIBLE UNDERLYING DEMENTIA - Neurology on board - family requesting transitioning to SNF RIGHT TEMPORAL MASS - MRI brain pending - Neurology consulted ACUTE SINUSITIS - start Augmentin BID x 7 days POSSIBLE AVASCULAR NECROSIS, RIGHT HIP ACETABULAR DEFORMITY, RIGHT - will consult Ortho HYPERTENSIVE URGENCY - improving - change Lisinopril to Amlodipine due to decrease Creatinine Clearance MICROSCOPIC HEMATURIA - repeat UA dvt prophylaxis - SCDs Dispo pending anticipate transition to SNF Current Inpatient Medications: Current Inpatient Medications Medications (Trade) Dose Ordered Sig/Vlad Route Start Time Stop Time Status Last Admin Dose Admin Ioversol 125 ml 125 ml UD PRN IV 08/15/16 23:00 08/19/16 22:59 Sodium Chloride (Nss 1000ml) 1,000 ml @ 60 mls/hr [id number] ONCE IV 08/16/16 02:30 08/16/16 19:09 08/16/16 03:53 60 MLS/HR Acetaminophen (Tylenol Tab) 650 mg Q4H PRN PO 08/16/16 02:30 09/15/16 02:29 08/16/16 13:11 325 MG Nitroglycerin (Nitrostat Tab) 0.4 mg UD PRN SL 08/16/16 02:30 09/15/16 02:29 Hydromorphone HCl (Dilaudid Inj) 0.5 mg Q3H PRN IV 08/16/16 02:30 08/30/16 02:29 Haloperidol (Haldol Tab) 2 mg Q4H PRN PO 08/16/16 02:30 09/15/16 02:29 Haloperidol Lactate (Haldol Inj) 2 mg Q2H PRN IM 08/16/16 02:30 09/15/16 02:29 Ondansetron HCl 4 mg 4 mg Q6H PRN IV 08/16/16 02:30 09/15/16 02:29 Promethazine HCl/ Sodium Chloride (Phenergan Inj/ Nss 50ml) 50.5 ml @ 204 mls/hr Q6H PRN IV 08/16/16 02:30 09/15/16 02:29 Senna/Docusate Sodium (Senokot S Tab) 1 tab DAILY PO 08/17/16 08:00 09/16/16 08:59 Polyethylene (Miralax Powder Packet) 17 gm DAILY PRN PO 08/16/16 02:30 09/15/16 02:29 Miscellaneous (Iv Fluids Completed) 1 ea PRN PRN N/A 08/16/16 03:15 08/16/17 03:14 Amlodipine Besylate (Norvasc Tab) 2.5 mg QAM PO 08/17/16 08:00 09/16/16 07:59
[2016-08-16 15:08] VITALS: BP 129/84; PULSE 80; TEMP 36.8; O2SAT 96
--- NOTE | 2016-08-16 15:29 | DIAGNOSTIC IMAGING REPORT ---
MRI OF THE BRAIN WITHOUT CONTRAST CLINICAL HISTORY: Mass seen on CT. COMPARISON STUDY: Head CT August 15, 2016. TECHNIQUE: Utilizing a 1.5 María magnet and dedicated coil, multiplanar, multiecho imaging of the brain was attempted. The study could not be completed and only two pulsing sequences were performed. Therefore, this exam is incomplete. No charge will be generated for this incomplete exam FINDINGS: This exam is incomplete however does confirm the presence of a right temporal mass which measures approximately 2.4 x 1.6 cm. This corresponds to the lesion shown on head CT. While not definitive, this mass is probably extra-axial and a meningioma is favored although this is incompletely characterized on this unenhanced study. No additional abnormalities are identified on the sagittal T1 sequence. IMPRESSION: Incomplete examination. However, this study confirms the presence of a 2.4 cm right temporal lobe mass. While not definitive, this mass is likely extra-axial and a meningioma is favored. However, if possible, the patient should return for a follow-up pre and postcontrast MRI. Electronically signed by: Jonny Mckenna M.D. 08/16/2016 3:28 PM Dictated Date/Time: 08/16/2016 3:23 PM
[2016-08-16 16:00] VITALS: O2SAT 96
[2016-08-16] MEDS: AMOXICILLIN/CLAVULANATE TAB 500 MG TAB PO SCH (17:59)
[2016-08-16] MEDS ORDERED: LORAZEPAM 0.5 MG TAB PO PRN (19:00)
[2016-08-16 20:00] VITALS: O2SAT 95
[2016-08-17 01:39] VITALS: BP 185/96; PULSE 78; TEMP 36.8; O2SAT 97
[2016-08-17 07:16] VITALS: BP 193/72; PULSE 64; TEMP 36.8; O2SAT 94
[2016-08-17] MEDS ORDERED: LISINOPRIL 2.5 MG TAB PO SCH (08:00)
[2016-08-17 08:30] VITALS: O2SAT 94
[2016-08-17] MEDS: AMOXICILLIN/CLAVULANATE TAB 500 MG TAB PO SCH ×2 (09:19→17:07)
[2016-08-17] MEDS: DOCUSATE SODIUM/SENNA 50/8.6MG TAB PO SCH (09:46)
[2016-08-17] MEDS: AMLODIPINE BESYLATE 5 MG TAB PO SCH (09:47)
--- NOTE | 2016-08-17 12:14 | Neurology Progress Notes ---
Neurology Progress Note Date of Service Aug 17, 2016. Efrem Maxwell is an 86 year old female who was brought to the ED after a fall at home. She has a PMH HTN and arthritis. 2 of her sons, a daughter and a daughter in law are all bedside. They states this has been a slow progression of memory issues and falls. She had to sell her house and move into an apartment and live with her daughter. She is unable now to pay her bills or keep up on the daily tasks around the house. Her daughter is epileptic and because of the stress she has started to have "mini seizures". Her family has wanted her to be evaluated because she is not eating or drinking well and is becoming more difficulty to handle but she has refused treatment. Patient states she falls all the time and she just wants to go home. She states she remembers falling and was not lightheaded or dizzy but she does say sometime she does have dizzy spells. This am she is sleeping. She awakes with moving covers. She had a restless night and was somewhat aggressive with nursing staff. She is asking where her daughter Denisa is and thinks she is at home. denies CP, SOB, abdominal pain, weakness. Objective Date Time Temp Pulse Resp B/P Pulse Ox O2 Delivery O2 Flow Rate FiO2 08/17/16 08:30 94 Room Air 08/17/16 07:16 36.8 64 18 193/72 94 Room Air 08/17/16 01:39 36.8 78 18 185/96 97 Room Air 08/16/16 20:00 95 Room Air 08/16/16 16:00 96 Room Air 08/16/16 15:08 36.8 80 16 129/84 96 Room Air Last 24 Hours Test 08/16/16 15:13 Vitamin B12 Level 626 pg/mL Folate 22.82 ng/mL Rapid Plasma Reagin NONREACTIVE Imaging: MRI brain- Incomplete examination. However, this study confirms the presence of a 2.4 cm right temporal lobe mass. While not definitive, this mass is likely extra-axial and a meningioma is favored. However, if possible, the patient should return for a follow-up pre and postcontrast MRI. Exam: Physical Exam: Constitutional: appearance nourished, healthy and normal Ears, Nose, Mouth and Throat: mucous membranes moist, no injection and skin normal, eyes normal Cardiovascular: normal S-1 and S-2 and regular rate and rhythm Respiratory: clear to auscultation (CTA) and no rales, rhonchi or wheeze Musculoskeletal: no peripheral edema and good distal pulses Skin: no stigmata of neurocutaneous disease noted and normal and intact Eyes: extraocular muscles intact (EOMI) and pupils equal, round and reactive to light (PERRL) NEUROLOGIC EXAMINATION: Mental status: Alert and interactive Oriented to person Speech fluent with no evidence of aphasia Cranial Nerves smile and eye brow raise symmetric. Gait/Stance: Posture lying in bed Current Inpatient Medications Medications (Trade) Dose Ordered Sig/Vlad Route Start Time Stop Time Status Last Admin Dose Admin Ioversol (Optiray 320) 125 ml UD PRN IV 08/15/16 23:00 08/19/16 22:59 Acetaminophen (Tylenol Tab) 650 mg Q4H PRN PO 08/16/16 02:30 09/15/16 02:29 08/16/16 13:11 325 MG Nitroglycerin (Nitrostat Tab) 0.4 mg UD PRN SL 08/16/16 02:30 09/15/16 02:29 Hydromorphone HCl (Dilaudid Inj) 0.5 mg Q3H PRN IV 08/16/16 02:30 08/30/16 02:29 Haloperidol (Haldol Tab) 2 mg Q4H PRN PO 08/16/16 02:30 09/15/16 02:29 Haloperidol Lactate (Haldol Inj) 2 mg Q2H PRN IM 08/16/16 02:30 09/15/16 02:29 Ondansetron HCl 4 mg 4 mg Q6H PRN IV 08/16/16 02:30 09/15/16 02:29 Promethazine HCl/ Sodium Chloride (Phenergan Inj/ Nss 50ml) 50.5 ml @ 204 mls/hr Q6H PRN IV 08/16/16 02:30 09/15/16 02:29 Senna/Docusate Sodium (Senokot S Tab) 1 tab DAILY PO 08/17/16 08:00 09/16/16 08:59 Polyethylene (Miralax Powder Packet) 17 gm DAILY PRN PO 08/16/16 02:30 09/15/16 02:29 Miscellaneous (Iv Fluids Completed) 1 ea PRN PRN N/A 08/16/16 03:15 08/16/17 03:14 Amlodipine Besylate (Norvasc Tab) 2.5 mg QAM PO 08/17/16 08:00 09/16/16 07:59 08/17/16 09:47 2.5 MG Amoxicillin/ Clavulanate Potassium (Augmentin Tab) 500 mg BIDM PO 08/16/16 15:30 08/26/16 15:29 08/17/16 09:19 500 MG Lorazepam (Ativan Tab) 0.5 mg Q6H PRN PO 08/16/16 19:00 09/15/16 18:59 Impression 86 year old female with a progressive decline in MS- CT head with lesion Plan 1. 1:1 due to fall risk 2. family is requesting placement for the progressive memory issues and unable to care for her at home 3. care management making arrangement 4. MRI patient could not tolerate. could try again or obtain a CT with and without contrast- family input would be helpful to determine if needed 5. labs B12, folate, RPR order, TSH all within normal limits 6. discussed dementia medications Aricept due to weight loss and no appetite is not option, may consider Namenda but not likely to be helpful at this point and family states she was refusing medication in the past. 7. getting patient to a safe environment was families main concern. I have seen and discussed above patient with Dr Alan Lares, neurology Above reviewed and patient seen She is clearly demented and the presumptive mass lesion is likely a meningioma but a contrast study will have to be done to define this and am not sure she will cooperate The issue is to me academic as the mass is not likely to be the cause of her cognitive impairment and agree that aricept will likely only cause more weight loss and namenda unlikely to benefit will follow along and await placement plans to be finalized Alan Lares MD
[2016-08-17 15:18] VITALS: BP 134/66; PULSE 75; TEMP 36.4; O2SAT 97
[2016-08-17 16:00] VITALS: O2SAT 95
--- NOTE | 2016-08-17 16:31 | Progress Note ---
Medicine Progress Note Date & Time of Visit: Aug 17, 2016 at 16:23. Subjective patient states she feels fine overall today headache is better no dizziness when standing mental status at baseline per granddaughter tolerating PT no chest pain, dyspnea, palpitations, dizziness,nausea no other symptoms Objective Last 8 Hrs Date Time Temp Pulse Resp B/P Pulse Ox O2 Delivery O2 Flow Rate FiO2 08/17/16 15:18 36.4 75 14 134/66 97 Room Air 08/17/16 08:30 94 Room Air Physical Exam: General- oriented x 3, not in distress, speaks in sentences with no effort Eyes- anicteric Neck- supple, no JVD Lungs- clear to auscultation bilaterally, no ralea Heart- normal rate, regular rhythm; no murmurs Abdomen- normal bowel sounds, soft, nontender Extremities- no pretibial edema, no calf tenderness Neuro- alert, oriented x 2;no gross focal deficits Skin- warm & dry Assessment & Plan 86 year old female with history of hypertension presenting with fall. S/P FALL - patient denies any prodrome - likely mechanical - PT/OT eval in progress orthostatic VS: negative POSSIBLE UNDERLYING DEMENTIA - Neurology on board Namenda and Aricept not recommended at this time - family requesting transitioning to SNF case management work in progress RIGHT TEMPORAL MASS - MRI brain: IMPRESSION: Incomplete examination. However, this study confirms the presence of a 2.4 cm right temporal lobe mass. While not definitive, this mass is likely extra-axial and a meningioma is favored. However, if possible, the patient should return for a follow-up pre and postcontrast MRI. - Neurology consulted monitor no further recommendations at this time ACUTE SINUSITIS - Day 2 Augmentin BID x 7 days - tolerating well POSSIBLE AVASCULAR NECROSIS, RIGHT HIP ACETABULAR DEFORMITY, RIGHT - awaiting Ortho eval HYPERTENSIVE URGENCY - improved - changed Lisinopril to Amlodipine due to decrease Creatinine Clearance MICROSCOPIC HEMATURIA - repeat UA dvt prophylaxis - SCDs ambulation Dispo pending anticipate transition to SNF Current Inpatient Medications: Current Inpatient Medications Medications (Trade) Dose Ordered Sig/Vlad Route Start Time Stop Time Status Last Admin Dose Admin Ioversol (Optiray 320) 125 ml UD PRN IV 08/15/16 23:00 08/19/16 22:59 Acetaminophen (Tylenol Tab) 650 mg Q4H PRN PO 08/16/16 02:30 09/15/16 02:29 08/16/16 13:11 325 MG Nitroglycerin (Nitrostat Tab) 0.4 mg UD PRN SL 08/16/16 02:30 09/15/16 02:29 Hydromorphone HCl (Dilaudid Inj) 0.5 mg Q3H PRN IV 08/16/16 02:30 08/30/16 02:29 Haloperidol (Haldol Tab) 2 mg Q4H PRN PO 08/16/16 02:30 09/15/16 02:29 Haloperidol Lactate (Haldol Inj) 2 mg Q2H PRN IM 08/16/16 02:30 09/15/16 02:29 Ondansetron HCl 4 mg 4 mg Q6H PRN IV 08/16/16 02:30 09/15/16 02:29 Promethazine HCl/ Sodium Chloride (Phenergan Inj/ Nss 50ml) 50.5 ml @ 204 mls/hr Q6H PRN IV 08/16/16 02:30 09/15/16 02:29 Senna/Docusate Sodium (Senokot S Tab) 1 tab DAILY PO 08/17/16 08:00 09/16/16 08:59 Polyethylene (Miralax Powder Packet) 17 gm DAILY PRN PO 08/16/16 02:30 09/15/16 02:29 Miscellaneous (Iv Fluids Completed) 1 ea PRN PRN N/A 08/16/16 03:15 08/16/17 03:14 Amlodipine Besylate (Norvasc Tab) 2.5 mg QAM PO 08/17/16 08:00 09/16/16 07:59 08/17/16 09:47 2.5 MG Amoxicillin/ Clavulanate Potassium (Augmentin Tab) 500 mg BIDM PO 08/16/16 15:30 08/26/16 15:29 08/17/16 09:19 500 MG Lorazepam (Ativan Tab) 0.5 mg Q6H PRN PO 08/16/16 19:00 09/15/16 18:59
--- NOTE | 2016-08-17 17:14 | CONSULTATION REPORT ---
DATE OF CONSULTATION: 08/17/2016 REASON FOR CONSULTATION: Right hip, possible avascular necrosis. HISTORY OF PRESENT ILLNESS: The patient is an 86-year-old female admitted to the hospital yesterday after a fall, scalp laceration and vomiting. Multiple imaging studies were obtained on the pelvis and the abdominal CT scan it was noted she had severe degenerative changes around the right hip and acetabulum area. We were consulted for further orthopedic evaluation. She denies any hip pain presently she said since her admission she has been able to ambulate. She has had some chronic hip arthritis, which she is aware of and does have some generalized joint pain as well. No more pain at this time than she has had previously. Again, she has been able to ambulate while in the hospital according to her granddaughter and staff member. No other orthopedic complaints at this time. 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 FAMILY HISTORY: Noncontributory. SOCIAL HISTORY: Denies alcohol, tobacco or drug use. ALLERGIES: No known drug allergies. MEDICATIONS: Reviewed in her chart and include only acetaminophen on admission. REVIEW OF SYSTEMS: Noncontributory. PHYSICAL EXAMINATION: Today, she was seen and examined by Dr. Krishna rivera as well. She is alert. She is slightly confused. She is in no distress. Her granddaughter is with her at this time. She has some tenderness to palpation around her knee. No knee effusion. She is able to actively extend her knee do a straight leg raise. No pain with flexion, extension of her knee. She has no pain with hip range of motion today, although she does have stiffness of her hip that go to her left leg as well. She has a scar on her left knee from her previous knee replacement. No swelling. Notes no pain at the left knee. She has no pain with motion of the left hip. X-RAYS: No x-rays were obtained. We did review her CT scan of her abdomen and pelvis, which showed advanced DJD of the right hip. IMPRESSION: Right hip advanced degenerative joint disease. PLAN: She was seen and examined by Dr. Krishna rivera. We reviewed her CT scan, we discussed the findings with her and her granddaughter. She does have a terrible arthritis of her hip, no acute changes. She has been able to ambulate. Physical therapy has been ordered. She can continue weightbearing as tolerated. No further intervention for her hip at this time. She had NO interest in any surgical treatment. No restrictions are needed. Thank you for this consult and please call with any further questions [phone]. [facility]
[2016-08-18] VITALS (7 sets, daily range): BP systolic 117–137; BP diastolic 65–78; PULSE 54–83; TEMP 36.7–36.9; O2SAT 91–97
[2016-08-18] MEDS: ACETAMINOPHEN 325 MG TAB PO PRN (08:06)
[2016-08-18] MEDS: AMLODIPINE BESYLATE 5 MG TAB PO SCH (08:07)
[2016-08-18] MEDS: DOCUSATE SODIUM/SENNA 50/8.6MG TAB PO SCH (08:07)
[2016-08-18] MEDS: AMOXICILLIN/CLAVULANATE TAB 500 MG TAB PO SCH ×2 (08:07→16:15)
--- NOTE | 2016-08-18 10:44 | Progress Note ---
Medicine Progress Note Date & Time of Visit: Aug 18, 2016 at 10:39. Subjective patient seen resting in bed comfortable had nausea this AM, resolved now tolerated breakfast denies chest pain, dyspnea, palpitations, dizziness would like to ambulate more denies other symptoms Objective Last 8 Hrs Date Time Temp Pulse Resp B/P Pulse Ox O2 Delivery O2 Flow Rate FiO2 08/18/16 07:26 36.8 54 18 137/65 97 Room Air Physical Exam: General- oriented x 3, not in distress, speaks in sentences with no effort Neck- no JVD Lungs- clear breath sounds bilaterally, no rales Heart- normal rate, regular rhythm; no murmurs Abdomen- normal bowel sounds, soft, nontender Extremities- no pretibial edema, no calf tenderness Neuro- alert, oriented x 2;no gross focal deficits Skin- warm & dry Assessment & Plan 86 year old female with history of hypertension presenting with fall. S/P FALL, likely Mechanical - patient denies any prodrome - likely mechanical - PT/OT eval in progress orthostatic VS: negative POSSIBLE UNDERLYING DEMENTIA - Neurology on board Namenda and Aricept not recommended at this time - family requesting transitioning to SNF case management work in progress- possibly Saturday RIGHT TEMPORAL MASS - MRI brain: IMPRESSION: Incomplete examination. However, this study confirms the presence of a 2.4 cm right temporal lobe mass. While not definitive, this mass is likely extra-axial and a meningioma is favored. However, if possible, the patient should return for a follow-up pre and postcontrast MRI. - Neurology consulted monitor no further recommendations at this time ACUTE SINUSITIS - Day 3 Augmentin BID x 7 days - tolerating well POSSIBLE AVASCULAR NECROSIS, RIGHT HIP ACETABULAR DEFORMITY, RIGHT - evaluated by Dr. Keller no further intervention for now monitor appreciate the recommendations HYPERTENSIVE URGENCY - improved - changed Lisinopril to Amlodipine due to decrease Creatinine Clearance MICROSCOPIC HEMATURIA - repeat UA dvt prophylaxis - SCDs, (+) temporal mass ambulation Dispo pending anticipate transition to SNF Current Inpatient Medications: Current Inpatient Medications Medications (Trade) Dose Ordered Sig/Vlad Route Start Time Stop Time Status Last Admin Dose Admin Ioversol (Optiray 320) 125 ml UD PRN IV 08/15/16 23:00 08/19/16 22:59 Acetaminophen (Tylenol Tab) 650 mg Q4H PRN PO 08/16/16 02:30 09/15/16 02:29 08/18/16 08:06 650 MG Nitroglycerin (Nitrostat Tab) 0.4 mg UD PRN SL 08/16/16 02:30 09/15/16 02:29 Haloperidol (Haldol Tab) 2 mg Q4H PRN PO 08/16/16 02:30 09/15/16 02:29 Haloperidol Lactate (Haldol Inj) 2 mg Q2H PRN IM 08/16/16 02:30 09/15/16 02:29 Ondansetron HCl 4 mg 4 mg Q6H PRN IV 08/16/16 02:30 09/15/16 02:29 Promethazine HCl/ Sodium Chloride (Phenergan Inj/ Nss 50ml) 50.5 ml @ 204 mls/hr Q6H PRN IV 08/16/16 02:30 09/15/16 02:29 Senna/Docusate Sodium (Senokot S Tab) 1 tab DAILY PO 08/17/16 08:00 09/16/16 08:59 08/18/16 08:07 1 TAB Polyethylene (Miralax Powder Packet) 17 gm DAILY PRN PO 08/16/16 02:30 09/15/16 02:29 Miscellaneous (Iv Fluids Completed) 1 ea PRN PRN N/A 08/16/16 03:15 08/16/17 03:14 Amlodipine Besylate (Norvasc Tab) 2.5 mg QAM PO 08/17/16 08:00 09/16/16 07:59 08/18/16 08:07 2.5 MG Amoxicillin/ Clavulanate Potassium (Augmentin Tab) 500 mg BIDM PO 08/16/16 15:30 08/26/16 15:29 08/18/16 08:07 500 MG Lorazepam (Ativan Tab) 0.5 mg Q6H PRN PO 08/16/16 19:00 09/15/16 18:59
[2016-08-18] MEDS ORDERED: TRAMADOL HCL 50 MG TAB PO PRN (10:45)
--- NOTE | 2016-08-18 12:19 | PROGRESS NOTE ---
DATE: 08/18/2016 DATE: 08/18/2016. Alissa looks well today. She is sitting with her family, she wants to go home. She has no idea where she is, thinking she is in [place] in a hospital that used to be a hotel. She is pleasant. There are no focal findings, cranial nerves are intact. She is ambulatory but tends to wander a bit and now she is in an unfamiliar environment so the wandering risk is higher. The imaging studies have been hampered by her inability to hold still or to tolerate the contrast, but it looks as though this is extraaxial lesion most consistent with a meningioma and frankly I am not sure it is of any value to try to sedate her and get an imaging study done to confirm what we already think and then put her at more risk for agitation and confusion. Right now there are apparently some issues about placement. The family really wants her in [facility] as they live close by and can visit, but there is some issue with the 1:1 nursing need which I think is probably something that is only transient and limited to her stay here in a very unfamiliar environment. She might need some extra attention at [facility] for a few days until she gets acclimated and the family will be able to help, so hopefully this can be somehow be allowed for and she can be placed in [facility] once a bed is available there. I will continue to see her, but at this point, neurology does not have anything to offer. I would not place her on anticonvulsants. Aricept is simply going to make her already low weight lower and curb in her appetite. I do not think Namenda has any role at this point in her dementia. Apparently Dr. Vasquez tried some of these medications, but she simply forgot to take them and I see no value in reinstituting them here. RUBY
[2016-08-19 08:00] VITALS: O2SAT 96
[2016-08-19] MEDS: AMLODIPINE BESYLATE 5 MG TAB PO SCH (08:25)
[2016-08-19] MEDS: DOCUSATE SODIUM/SENNA 50/8.6MG TAB PO SCH (08:26)
[2016-08-19] MEDS: AMOXICILLIN/CLAVULANATE TAB 500 MG TAB PO SCH ×2 (08:27→19:03)
[2016-08-19 08:29] VITALS: BP 157/90; PULSE 83; TEMP 37; O2SAT 98
--- NOTE | 2016-08-19 12:47 | PROGRESS NOTE ---
DATE: 08/19/2016 DATE: 08/19/2016. Alissa looks the same today. Her family was not here and she was asleep. She is pleasantly confused. She keeps stating she wants to go home. I mentioned the possibility of her going to [facility] and she seems to recognize the name of the institution and thought she had been there before and did not particularly "care for it". This is about all I get out of her. Otherwise, exam is nonfocal except for cognitive impairment for which she requires 1 on 1 observation for safety while she is here in the hospital. assistant guest services manager is working on placement issues. Neurologically we are really not going to start her on Aricept and I see no role for Namenda. I think the mass lesion is clearly a meningioma and at this point I do not think we need to follow up with any other evaluations other than perhaps another CAT scan in a year or so. We will check on her again tomorrow, but at some point neurology's input is really not going to be necessary. We are going to probably sign off the case in a day or 2 unless there are significant changes in her status. RUBY
[2016-08-19 16:00] VITALS: O2SAT 97
[2016-08-19 16:06] VITALS: BP 136/63; PULSE 61; TEMP 36.7; O2SAT 93
--- NOTE | 2016-08-19 16:25 | Progress Note ---
Medicine Progress Note Date & Time of Visit: Aug 19, 2016 at 16:22. Subjective seen resting in bed, comfortable pleasantly confused states she feels ok overall has occasional headaches noted to have diarrhea today, no abdominal pain/nausea no other symptoms Objective Last 8 Hrs Date Time Temp Pulse Resp B/P Pulse Ox O2 Delivery O2 Flow Rate FiO2 08/19/16 16:06 36.7 61 16 136/63 93 Room Air 08/19/16 16:00 97 Room Air 08/19/16 08:29 37.0 83 20 157/90 98 Room Air Physical Exam: General- oriented x 1, not in distress, speaks in sentences with no effort Lungs- clear breath sounds bilaterally, no rales Heart- normal rate, regular rhythm; no murmurs Abdomen- normal bowel sounds, soft, nontender Extremities- no pretibial edema, no calf tenderness Neuro- alert, oriented x 1;no gross focal deficits Skin- warm & dry Assessment & Plan 86 year old female with history of hypertension presenting with fall. S/P FALL, likely Mechanical - patient denies any prodrome - likely mechanical - PT/OT eval in progress orthostatic VS: negative POSSIBLE UNDERLYING DEMENTIA - Neurology on board Namenda and Aricept not recommended at this time - family requesting transitioning to SNF case management work in progress- possibly Saturday RIGHT TEMPORAL MASS - MRI brain: IMPRESSION: Incomplete examination. However, this study confirms the presence of a 2.4 cm right temporal lobe mass. While not definitive, this mass is likely extra-axial and a meningioma is favored. However, if possible, the patient should return for a follow-up pre and postcontrast MRI. - Neurology consulted monitor no further recommendations at this time ACUTE SINUSITIS - Day 4 Augmentin BID x 7 days - tolerating well DIARRHEA check C diff POSSIBLE AVASCULAR NECROSIS, RIGHT HIP ACETABULAR DEFORMITY, RIGHT - evaluated by Dr. Keller no further intervention for now monitor appreciate the recommendations HYPERTENSIVE URGENCY - improved - changed Lisinopril to Amlodipine due to decrease Creatinine Clearance MICROSCOPIC HEMATURIA - repeat UA dvt prophylaxis - SCDs, (+) temporal mass ambulation Dispo pending anticipate transition to SNF Current Inpatient Medications: Current Inpatient Medications Medications (Trade) Dose Ordered Sig/Vlad Route Start Time Stop Time Status Last Admin Dose Admin Ioversol (Optiray 320) 125 ml UD PRN IV 08/15/16 23:00 08/19/16 22:59 Acetaminophen (Tylenol Tab) 650 mg Q4H PRN PO 08/16/16 02:30 09/15/16 02:29 08/18/16 08:06 650 MG Nitroglycerin (Nitrostat Tab) 0.4 mg UD PRN SL 08/16/16 02:30 09/15/16 02:29 Haloperidol (Haldol Tab) 2 mg Q4H PRN PO 08/16/16 02:30 09/15/16 02:29 Haloperidol Lactate (Haldol Inj) 2 mg Q2H PRN IM 08/16/16 02:30 09/15/16 02:29 Ondansetron HCl 4 mg 4 mg Q6H PRN IV 08/16/16 02:30 09/15/16 02:29 Promethazine HCl/ Sodium Chloride (Phenergan Inj/ Nss 50ml) 50.5 ml @ 204 mls/hr Q6H PRN IV 08/16/16 02:30 09/15/16 02:29 Polyethylene (Miralax Powder Packet) 17 gm DAILY PRN PO 08/16/16 02:30 09/15/16 02:29 Miscellaneous (Iv Fluids Completed) 1 ea PRN PRN N/A 08/16/16 03:15 08/16/17 03:14 Amlodipine Besylate (Norvasc Tab) 2.5 mg QAM PO 08/17/16 08:00 09/16/16 07:59 08/19/16 08:25 2.5 MG Amoxicillin/ Clavulanate Potassium (Augmentin Tab) 500 mg BIDM PO 08/16/16 15:30 08/26/16 15:29 08/19/16 08:27 500 MG Lorazepam (Ativan Tab) 0.5 mg Q6H PRN PO 08/16/16 19:00 09/15/16 18:59 08/18/16 16:15 0.5 MG Tramadol HCl (Ultram Tab) 50 mg Q8H PRN PO 08/18/16 10:45 09/17/16 10:44
[2016-08-19 22:56] VITALS: BP 151/83; PULSE 67; TEMP 36.3; O2SAT 99
[2016-08-20] VITALS: O2SAT 97
[2016-08-20] MEDS: ACETAMINOPHEN 325 MG TAB PO PRN ×3 (03:54→17:32)
[2016-08-20 07:49] VITALS: BP 163/80; PULSE 50; TEMP 36.7; O2SAT 99
[2016-08-20] MEDS: AMOXICILLIN/CLAVULANATE TAB 500 MG TAB PO SCH ×2 (08:03→17:32)
[2016-08-20] MEDS: AMLODIPINE BESYLATE 5 MG TAB PO SCH (08:04)
[2016-08-20] MEDS ORDERED: ONDANSETRON 4 MG TAB PO PRN (12:00)
--- NOTE | 2016-08-20 14:44 | Neurology Progress Notes ---
Neurology Progress Note Date of Service Aug 20, 2016. Efrem Maxwell is an 86 year old female who was brought to the ED after a fall at home. She has a PMH HTN and arthritis. 2 of her sons, a daughter and a daughter in law are all bedside. They states this has been a slow progression of memory issues and falls. She had to sell her house and move into an apartment and live with her daughter. She is unable now to pay her bills or keep up on the daily tasks around the house. Her daughter is epileptic and because of the stress she has started to have "mini seizures". Her family has wanted her to be evaluated because she is not eating or drinking well and is becoming more difficulty to handle but she has refused treatment. Patient states she falls all the time and she just wants to go home. She states she remembers falling and was not lightheaded or dizzy but she does say sometime she does have dizzy spells. Today her son is in the room and states they are working on getting placement but the 1:1 due to confusion is causing her to be delayed. Today she states she is in a hospital but she is unsure where. She does know her son. denies CP, SOB , abdominal pain, + nausea and vomiting earlier today but she took a nap and then ate her lunch. 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 Current Inpatient Medications Medications (Trade) Dose Ordered Sig/Vlad Route Start Time Stop Time Status Last Admin Dose Admin Acetaminophen (Tylenol Tab) 650 mg Q4H PRN PO 08/16/16 02:30 09/15/16 02:29 08/20/16 10:53 650 MG Nitroglycerin (Nitrostat Tab) 0.4 mg UD PRN SL 08/16/16 02:30 09/15/16 02:29 Haloperidol (Haldol Tab) 2 mg Q4H PRN PO 08/16/16 02:30 09/15/16 02:29 Haloperidol Lactate (Haldol Inj) 2 mg Q2H PRN IM 08/16/16 02:30 09/15/16 02:29 Ondansetron HCl 4 mg 4 mg Q6H PRN IV 08/16/16 02:30 09/15/16 02:29 Promethazine HCl/ Sodium Chloride (Phenergan Inj/ Nss 50ml) 50.5 ml @ 204 mls/hr Q6H PRN IV 08/16/16 02:30 09/15/16 02:29 Polyethylene (Miralax Powder Packet) 17 gm DAILY PRN PO 08/16/16 02:30 09/15/16 02:29 Miscellaneous (Iv Fluids Completed) 1 ea PRN PRN N/A 08/16/16 03:15 08/16/17 03:14 Amlodipine Besylate (Norvasc Tab) 2.5 mg QAM PO 08/17/16 08:00 09/16/16 07:59 08/20/16 08:04 2.5 MG Amoxicillin/ Clavulanate Potassium (Augmentin Tab) 500 mg BIDM PO 08/16/16 15:30 08/26/16 15:29 08/20/16 08:03 500 MG Lorazepam (Ativan Tab) 0.5 mg Q6H PRN PO 08/16/16 19:00 09/15/16 18:59 08/18/16 16:15 0.5 MG Tramadol HCl (Ultram Tab) 50 mg Q8H PRN PO 08/18/16 10:45 09/17/16 10:44 08/20/16 08:03 50 MG Ondansetron HCl (Zofran Tab) 4 mg Q6H PRN PO 08/20/16 12:00 09/19/16 11:59 Impression 86 year old female with a progressive decline in MS- CT head with lesion Plan 1. 1:1 due to fall risk 2. family is requesting placement for the progressive memory issues and unable to care for her at home 3. care management making arrangement 4. MRI patient could not tolerate. could try again or obtain a CT with and without contrast- family input would be helpful to determine if needed 5. labs B12, folate, RPR order, TSH all within normal limits 6. discussed dementia medications Aricept due to weight loss and no appetite is not option, may consider Namenda but not likely to be helpful at this point and family states she was refusing medication in the past. 7. getting patient to a safe environment was families main concern. 8. psych consult would be helpful for behavior issues switch to seraquel rather than prn haldol may be more appropriate. 9. will sign off for now will be available for questions or concerns if needed. I have seen and discussed above patient with Dr Alan Lares, neurology Patient seen still pleasantly confused and is going off to a facility near her home this afternoon we can see as needed follow up if desired with Anaid Staton and Anaid Graves and she maay need a ct of the head to check on the presumptove meningioma in a year Alan Lares MD
[2016-08-20 15:16] VITALS: BP 141/81; PULSE 83; TEMP 36.6; O2SAT 96
--- NOTE | 2016-08-20 15:36 | Progress Note ---
Medicine Progress Note Date & Time of Visit: Aug 20, 2016 at 15:28. Subjective patient states she feels ok overall today pleasantly confused has chronic intermittent headaches no focal neuro symptoms, dizziness, nausea no other symptoms states she is ready for discharge today family at bedside and agreeable with discharge Objective Last 8 Hrs Date Time Temp Pulse Resp B/P Pulse Ox O2 Delivery O2 Flow Rate FiO2 08/20/16 15:16 36.6 83 16 141/81 96 Room Air 08/20/16 08:00 Room Air 08/20/16 07:49 36.7 50 22 163/80 99 Room Air Physical Exam: General- oriented x 1, not in distress, speaks in sentences with no effort head- [address] over right parietal scalp, healing well, no bleeding/ swelling/discharge Lungs- clear breath sounds bilaterally, no rales/wheezes Heart- normal rate, regular rhythm Abdomen- normal bowel sounds, soft, nontender Extremities- no pretibial edema, no calf tenderness Neuro- alert, oriented x 1;no gross focal deficits Skin- warm & dry Laboratory Results: Date/Time Source Procedure Growth Status 08/19/16 18:40 Stool C.difficile Toxin B Gene (PCR) - Final No C. difficile toxin B gene detected Complete Assessment & Plan 86 year old female with history of hypertension presenting with fall. S/P FALL, likely Mechanical - patient denies any prodrome - likely mechanical - PT/OT performed inpatient orthostatic VS: negative - continue PT/OT POSSIBLE UNDERLYING DEMENTIA - Neurology Dr. Lares evaluated the patient Namenda and Aricept not recommended at this time - continue outpatient neuro ff up RIGHT TEMPORAL MASS - MRI brain: IMPRESSION: Incomplete examination. However, this study confirms the presence of a 2.4 cm right temporal lobe mass. While not definitive, this mass is likely extra-axial and a meningioma is favored. However, if possible, the patient should return for a follow-up pre and postcontrast MRI. - Neurologist Dr. Lares feels this is meningioma repeat CT head in 1 year no further recommendations at this time RIGHT PARIETAL SCALP LACERATION staple removal in 2 days ACUTE SINUSITIS - Day 5 Augmentin BID x 7 days - tolerating well - continue 2 more days of Augmentin DIARRHEA resolved no C diff POSSIBLE AVASCULAR NECROSIS, RIGHT HIP ACETABULAR DEFORMITY, RIGHT - CT abdomen: 1. Severe degenerative change right hip with a small air-containing fluid pocket superior to the acetabulum of uncertain etiology. 2. Nonobstructive bowel pattern. 3. 50% compression deformity T10 considered old 4. Increased fecal load within the sigmoid. 5. Bibasilar fibrotic change - evaluated by Dr. Keller- Ortho no further intervention for now weight bearing as tolerated HYPERTENSIVE URGENCY - improved - changed Lisinopril to Amlodipine due to decrease Creatinine Clearance - monitor BP MICROSCOPIC HEMATURIA - repeat UA on follow up with PCP Dispo d/c home today ff up with Primary Care Physician in 3-[address] head in 1 year Current Inpatient Medications: Current Inpatient Medications Medications (Trade) Dose Ordered Sig/Vlad Route Start Time Stop Time Status Last Admin Dose Admin Acetaminophen (Tylenol Tab) 650 mg Q4H PRN PO 08/16/16 02:30 09/15/16 02:29 08/20/16 10:53 650 MG Nitroglycerin (Nitrostat Tab) 0.4 mg UD PRN SL 08/16/16 02:30 09/15/16 02:29 Haloperidol (Haldol Tab) 2 mg Q4H PRN PO 08/16/16 02:30 09/15/16 02:29 Haloperidol Lactate (Haldol Inj) 2 mg Q2H PRN IM 08/16/16 02:30 09/15/16 02:29 Ondansetron HCl 4 mg 4 mg Q6H PRN IV 08/16/16 02:30 09/15/16 02:29 Promethazine HCl/ Sodium Chloride (Phenergan Inj/ Nss 50ml) 50.5 ml @ 204 mls/hr Q6H PRN IV 08/16/16 02:30 09/15/16 02:29 Polyethylene (Miralax Powder Packet) 17 gm DAILY PRN PO 08/16/16 02:30 09/15/16 02:29 Miscellaneous (Iv Fluids Completed) 1 ea PRN PRN N/A 08/16/16 03:15 08/16/17 03:14 Amlodipine Besylate (Norvasc Tab) 2.5 mg QAM PO 08/17/16 08:00 09/16/16 07:59 08/20/16 08:04 2.5 MG Amoxicillin/ Clavulanate Potassium (Augmentin Tab) 500 mg BIDM PO 08/16/16 15:30 08/26/16 15:29 08/20/16 08:03 500 MG Lorazepam (Ativan Tab) 0.5 mg Q6H PRN PO 08/16/16 19:00 09/15/16 18:59 08/18/16 16:15 0.5 MG Tramadol HCl (Ultram Tab) 50 mg Q8H PRN PO 08/18/16 10:45 09/17/16 10:44 08/20/16 08:03 50 MG Ondansetron HCl (Zofran Tab) 4 mg Q6H PRN PO 08/20/16 12:00 09/19/16 11:59
[2016-08-20] MEDS ORDERED: AMOX1TAB42 PO (15:38)
[2016-08-20] MEDS ORDERED: NRV5 PO (15:38)
[2016-08-20] MEDS ORDERED: TYL325X PO (15:38)
--- NOTE | 2016-08-20 15:42 | Discharge Instructions ---
Discharge Instructions Date of Service Aug 20, 2016. Admission Reason for Admission: Cerebral Concussion Discharge Discharge Diagnosis / Problem: S/P FALL Discharge Goals Goal(s): Diagnostic testing, Therapeutic intervention Activity Recommendations Activity Level: Assistance Required Therapies: Physical Therapy, Occupational Therapy . Additional Information Patient informed of condition: Yes Advance Directives: No (UNKNOWN) DNR: Yes ( PER SON JAMIN) Level of Care: Skilled Communicable Disease: No Prognosis: Stable Instructions / Follow-Up Instructions / Follow-Up PATIENT ON ONE-TO-ONE OBSERVATION WHILE IN THE HOSPITAL. PLEASE EVALUATE NECESSITY. REMOVE KEVIN ON THE SCALP IN 2 DAYS. FALL PRECAUTIONS PLEASE. MONITOR BLOOD PRESSURE. FOLLOW UP WITH PRIMARY CARE PHYSICIAN IN 1 WEEK. FOLLOW UP WITH NEUROLOGIST IN 3-[address] HEAD IN 1 YEAR TO FOLLOW UP RIGHT TEMPORAL MASS- LIKELY MENINGIOMA. PLEASE REFER TO ACCOMPANYING DISCHARGE SUMMARY. Current Hospital Diet Patient's current hospital diet: Regular Diet, AHA Diet (Heart Healthy) Discharge Diet Recommended Diet: AHA Diet (Heart Healthy) Pending Studies Studies pending at discharge: yes List of pending studies: REPEAT CT HEAD IN 1 YEAR Physician Orders On Transfer Special Precautions: PATIENT ON ONE-TO-ONE OBSERVATION WHILE IN THE HOSPITAL. PLEASE EVALUATE NECESSITY. REMOVE KEVIN ON THE SCALP IN 2 DAYS. FALL PRECAUTIONS PLEASE. MONITOR BLOOD PRESSURE. FOLLOW UP WITH PRIMARY CARE PHYSICIAN IN 1 WEEK. FOLLOW UP WITH NEUROLOGIST IN 3-[address] HEAD IN 1 YEAR TO FOLLOW UP RIGHT TEMPORAL MASS- LIKELY MENINGIOMA. PLEASE REFER TO ACCOMPANYING DISCHARGE SUMMARY. Medical Emergencies . Who to Call and When: Medical Emergencies: If at any time you feel your situation is an emergency, please call 911 immediately. . Non-Emergent Contact Non-Emergency issues call your: Primary Care Provider Call Non-Emergent contact if: you have a fever, your pain is not controlled, wound has increased drainage, wound has increased redness, wound has increased pain, you have any medication questions . Past History Medical & Surgical History: (1) Head injury (2) Vomiting (3) Fall (4) Scalp laceration (5) Brain mass (6) Cerebral concussion (7) Arthritis (8) Arthroplasty of knee (9) Benign essential hypertension (10) Hemorrhoids . "Provider Documentation" section prepared by Esvin Gurrola. Core Measure Problem Core Measures: None
--- NOTE | 2016-08-20 15:47 | Discharge Summary ---
Discharge Summary Date of Service Aug 20, 2016. 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 COMPARISON STUDY: Head CT August 15, 2016. TECHNIQUE: Utilizing a 1.5 María magnet and dedicated coil, multiplanar, multiecho imaging of the brain was attempted. The study could not be completed and only two pulsing sequences were performed. Therefore, this exam is incomplete. No charge will be generated for this incomplete exam FINDINGS: This exam is incomplete however does confirm the presence of a right temporal mass which measures approximately 2.4 x 1.6 cm. This corresponds to the lesion shown on head CT. While not definitive, this mass is probably extra-axial and a meningioma is favored although this is incompletely characterized on this unenhanced study. No additional abnormalities are identified on the sagittal T1 sequence. IMPRESSION: Incomplete examination. However, this study confirms the presence of a 2.4 cm right temporal lobe mass. While not definitive, this mass is likely extra-axial and a meningioma is favored. However, if possible, the patient should return for a follow-up pre and postcontrast MRI. ABDOMEN AND PELVIS CT WITH IV CONTRAST CT DOSE: 306.32 mGy.cm HISTORY: Pain. Nausea. lower abd pain TECHNIQUE: Multiaxial CT images of the abdomen and pelvis were performed following the use of intravenous contrast. COMPARISON STUDY: None. FINDINGS: Nonspecific interstitial change at both lung bases. Liver spleen and pancreas are unremarkable. Several small parapelvic cysts versus prominent extrarenal pelves. No evidence for hydronephrosis. 6 mm cyst anterior aspect interpolar region left kidney. Bowel pattern is nonobstructive. Moderate increase in fecal load within the sigmoid. Compression deformity T10 considered old by CT criteria. Severe degenerative change right hip with evidence for appears to be long-standing avascular necrosis versus old posttraumatic change. Severe deformity right acetabulum. Small air/fluid pocket superior to the acetabulum which may be present on a degenerative and/or post injection basis. Infection is considered a secondary but nevertheless possible etiology. IMPRESSION: 1. Severe degenerative change right hip with a small air-containing fluid pocket superior to the acetabulum of uncertain etiology. 2. Nonobstructive bowel pattern. 3. 50% compression deformity T10 considered old 4. Increased fecal load within the sigmoid. 5. Bibasilar fibrotic change [~ rep ct add3]] CERVICAL SPINE CT CT DOSE: HISTORY: Trauma fall, head injury TECHNIQUE: Multiaxial CT images of the cervical spine were performed and reformatted in the sagittal and coronal plane without the use of contrast. COMPARISON: None. FINDINGS: No fractures. No subluxation. Prevertebral soft tissues and the C1-C2 interval are intact. No pneumothorax. Degenerative change throughout IMPRESSION: No fractures within the cervical spine. Degenerative change throughout. [~ rep ct add3]] CHEST ONE VIEW PORTABLE CLINICAL HISTORY: Chest pain. Fall. COMPARISON STUDY: Chest radiograph December 10, 2015. FINDINGS: There is no pneumothorax or pleural effusion. Subpleural interstitial thickening remains unchanged. Cardiomegaly is unchanged. There is no lobar consolidation. Severe degenerative changes of both shoulders with elevation of each humeral head is unchanged. This suggests chronic rotator cuff tears. IMPRESSION: 1. No acute findings. 2. No change in appearance of the Consultations: NEUROLOGIST DR. LARES Pending Studies/Follow-Up: PATIENT ON ONE-TO-ONE OBSERVATION WHILE IN THE HOSPITAL. PLEASE EVALUATE NECESSITY. REMOVE JACOB ON THE SCALP IN 2 DAYS. FALL PRECAUTIONS PLEASE. MONITOR BLOOD PRESSURE. FOLLOW UP WITH PRIMARY CARE PHYSICIAN IN 1 WEEK. FOLLOW UP WITH NEUROLOGIST IN 3-[address] HEAD IN 1 YEAR TO FOLLOW UP RIGHT TEMPORAL MASS- LIKELY MENINGIOMA. PLEASE REFER TO ACCOMPANYING DISCHARGE SUMMARY. Medication Reconciliation New Medications: Acetaminophen (Tylenol) 325 Mg Tab 650 MG PO Q4H PRN for Pain or Fever for 10 Days, TAB Amlodipine Besylate (Amlodipine Besylate) 5 Mg Tab 2.5 MG PO QAM for 30 Days, #30 TAB 1 Refill Amoxicillin & Pot Clavulanate (Amoxicillin/Clavulanate P) 1 Tab Tab 500 MG PO BIDM for 2 Days, #4 TAB 0 Refills Discontinued Medications: Acetaminophen (Tylenol) 500 Mg Tab 1000 MG PO Q4 PRN for Pain, TAB Admission Information HPI (per Admitting provider): Medical history significant for hypertension, irritable bowel syndrome, constipation predominant as per records, dementia. Recent confinement in the hospital last 2010 for left knee surgery. As per patient's daughter, px turned around yesterday leading to dizziness and a fall. PX subsequently hit her head. Emesis sx as per EMS account. No witnessed LOC. Patient does not recall falling or hitting her head. Px denies chest pain, shortness of breath. Brought by EMS to the hospital, scalp wound sutured. Physical Exam (per Admitting): VITAL SIGNS: Blood pressure was noted to be 170/76, pulse rate 60, RR 16, T 37 O2 98 room air. GENERAL: Noted to be demented, no respiratory distress. SKIN: Normal color. HEENT: Jacob on scalp lacerated wound, R parietal, pink palp conjunctivae, dry mucosa. NECK: No JVD. Supple. CHEST: Decreased effort. HEART: Regular rate and rhythm. ABDOMEN: Some distention, nontender. EXTREMITIES: No edema, no tenderness. NEUROLOGIC: Dementia. Hospital Course 86 year old female with history of hypertension presenting with fall. S/P FALL, likely Mechanical - patient denies any prodrome - likely mechanical - PT/OT performed inpatient orthostatic VS: negative - continue PT/OT POSSIBLE UNDERLYING DEMENTIA - Neurology Dr. Lares evaluated the patient Namenda and Aricept not recommended at this time - continue outpatient neuro ff up RIGHT TEMPORAL MASS - MRI brain: IMPRESSION: Incomplete examination. However, this study confirms the presence of a 2.4 cm right temporal lobe mass. While not definitive, this mass is likely extra-axial and a meningioma is favored. However, if possible, the patient should return for a follow-up pre and postcontrast MRI. - Neurologist Dr. Lares feels this is meningioma repeat CT head in 1 year no further recommendations at this time RIGHT PARIETAL SCALP LACERATION staple removal in 2 days ACUTE SINUSITIS - Day 5 Augmentin BID x 7 days - tolerating well - continue 2 more days of Augmentin DIARRHEA resolved no C diff POSSIBLE AVASCULAR NECROSIS, RIGHT HIP ACETABULAR DEFORMITY, RIGHT - CT abdomen: 1. Severe degenerative change right hip with a small air-containing fluid pocket superior to the acetabulum of uncertain etiology. 2. Nonobstructive bowel pattern. 3. 50% compression deformity T10 considered old 4. Increased fecal load within the sigmoid. 5. Bibasilar fibrotic change - evaluated by Dr. Keller- Ortho no further intervention for now weight bearing as tolerated HYPERTENSIVE URGENCY - improved - changed Lisinopril to Amlodipine due to decrease Creatinine Clearance - monitor BP MICROSCOPIC HEMATURIA - repeat UA on follow up with PCP Dispo d/c home ff up with Primary Care Physician in 3-[address] head in 1 year Total time spent on discharge = 40 MINUTES This includes examination of the patient, discharge planning, medication reconciliation, and communication with other providers. Discharge Instructions Discharge Instructions Date of Service Aug 20, 2016. Admission Reason for Admission: Cerebral Concussion Discharge Discharge Diagnosis / Problem: S/P FALL Discharge Goals Goal(s): Diagnostic testing, Therapeutic intervention Activity Recommendations Activity Level: Assistance Required Therapies: Physical Therapy, Occupational Therapy . Additional Information Patient informed of condition: Yes Advance Directives: No (UNKNOWN) DNR: Yes ( PER SON JAMIN) Level of Care: Skilled Communicable Disease: No Prognosis: Stable Instructions / Follow-Up Instructions / Follow-Up PATIENT ON ONE-TO-ONE OBSERVATION WHILE IN THE HOSPITAL. PLEASE EVALUATE NECESSITY. REMOVE JACOB ON THE SCALP IN 2 DAYS. FALL PRECAUTIONS PLEASE. MONITOR BLOOD PRESSURE. FOLLOW UP WITH PRIMARY CARE PHYSICIAN IN 1 WEEK. FOLLOW UP WITH NEUROLOGIST IN 3-[address] HEAD IN 1 YEAR TO FOLLOW UP RIGHT TEMPORAL MASS- LIKELY MENINGIOMA. PLEASE REFER TO ACCOMPANYING DISCHARGE SUMMARY. Current Hospital Diet Patient's current hospital diet: Regular Diet, AHA Diet (Heart Healthy) Discharge Diet Recommended Diet: AHA Diet (Heart Healthy) Pending Studies Studies pending at discharge: yes List of pending studies: REPEAT CT HEAD IN 1 YEAR Physician Orders On Transfer Special Precautions: PATIENT ON ONE-TO-ONE OBSERVATION WHILE IN THE HOSPITAL. PLEASE EVALUATE NECESSITY. REMOVE JACOB ON THE SCALP IN 2 DAYS. FALL PRECAUTIONS PLEASE. MONITOR BLOOD PRESSURE. FOLLOW UP WITH PRIMARY CARE PHYSICIAN IN 1 WEEK. FOLLOW UP WITH NEUROLOGIST IN 3-[address] HEAD IN 1 YEAR TO FOLLOW UP RIGHT TEMPORAL MASS- LIKELY MENINGIOMA. PLEASE REFER TO ACCOMPANYING DISCHARGE SUMMARY. Medical Emergencies . Who to Call and When: Medical Emergencies: If at any time you feel your situation is an emergency, please call 911 immediately. . Non-Emergent Contact Non-Emergency issues call your: Primary Care Provider Call Non-Emergent contact if: you have a fever, your pain is not controlled, wound has increased drainage, wound has increased redness, wound has increased pain, you have any medication questions . Past History Medical & Surgical History: (1) Head injury (2) Vomiting (3) Fall (4) Scalp laceration (5) Brain mass (6) Cerebral concussion (7) Arthritis (8) Arthroplasty of knee (9) Benign essential hypertension (10) Hemorrhoids . "Provider Documentation" section prepared by Esvin Gurrola. Core Measure Problem Core Measures: None
[2016-08-20 17:41] VITALS: BP 141/81; PULSE 83; TEMP 36.6; O2SAT 96
== END 2016-08-20 18:30 ==
LOC: ENRESERVDT → ENRESERVTM → EDBD 22:27 → C.EDC 22:28 → C.MED 08-16 01:52 → C.MS4W 08-16 07:24
PROVIDERS: ADMIT Internal Medicine; ATTEND Internal Medicine
DX: S06.0X9A Concussion with loss of consciousness of unspecified duration, initial encounter (principal); S01.01XA Laceration without foreign body of scalp, initial encounter; W19.XXXA Unspecified fall, initial encounter; I10 Essential (primary) hypertension; G93.9 Disorder of brain, unspecified; I16.0 Hypertensive urgency; R31.29 Other microscopic hematuria; J01.90 Acute sinusitis, unspecified; R19.7 Diarrhea, unspecified; F03.90 Unspecified dementia, unspecified severity, without behavioral disturbance, psychotic disturbance, mood disturbance, and anxiety; M16.11 Unilateral primary osteoarthritis, right hip; M19.011 Primary osteoarthritis, right shoulder; M19.012 Primary osteoarthritis, left shoulder; Z91.14 Patient's other noncompliance with medication regimen; Z96.652 Presence of left artificial knee joint; Z90.710 Acquired absence of both cervix and uterus